=== PATIENT | female | born 1935 | race African-American/Black ===

== ENCOUNTER 2017-09-16 21:14 | Inpatient (IN) | payer MEDICARE ==
--- NOTE | 2017-09-16 21:51 | ED Physician Chart ---
ED Chief Complaint/HPI - Patient Information Date Seen:: 09/16/17 Time Seen:: 21:30 Chief Complaint:: generalized weakness History of Present Illness:: Patient's been lethargic, had generalized weakness, anorexic, refusing medications, and constipated for 3 days. Allergies:: Allergies Allergy/AdvReac Type Severity Reaction Status Date / Time Penicillins [PCN] Allergy Verified 09/16/17 21:17 Vitals:: Vital Signs - 8 hr 09/16/17 21:18 Temp 97.8 F HR 95 RR 20 BP 144/92 O2 Sat % 99 Historian:: EMS Review:: Transfer documents Reviewed ED Review of Systems - Review of Systems General/Constitutional: Weakness Skin: No skin lesions Head: No headache Eyes: No loss of vision ENT: No earache Neck: No neck pain Cardio Vascular: No chest pain Pulmonary: No SOB GI: Constipation, Other (Alexia) G/U: No dysuria Musculoskeletal: No bone or joint pain Endocrine: No polyuria, No polydipsia Psychiatric: Depression, Other (dementia) Hematopoietic: No bruising Allergic/Immuno: No urticaria Neurological: No syncope ED Past Medical History - Past Medical History Past Medical History: HTN, DM (status post urinary tract infection; major depression; anemia; hypercholesterolemia; vitamin D deficiency), CHF, Dyslipidemia, Arthritis, Dementia, Other (status post urinary tract infection; congestive heart failure) Family History: Other (unavailable) Social History: Care Facility Surgical History: other (unavailable) Psychiatricy History: Depression, Dementia Medication: Reviewed Family Medical History - Family Member Mother History Unknown: Yes ED Physical Exam - Physical Examination Other Gen/Cons comments:: Nonverbal Head: Atraumatic Eyes: Lids, conjuctiva normal Skin: Nl inspection ENMT: External ears, nose nl Neck: No nuchal rigidity Respiratory: Nl effort/Exclusion, Clear to Auscultation, No Wheeze/Rhonchi/Rales Cardio Vascular: RRR, No murmur, gallop, rubs, NL S1 S2 GI: No tenderness/rebounding/guarding, No organomegaly, No hernia, Normal BS's : No CVA tenderness Extremities: No tenderness or effusion Neuro/Psych: No focal deficits Misc: Normal back ED Labs/Radiology/EKG Results - Lab Results Results: Laboratory Results - last 24 hr 05/09/16/17 09/16/17 22:02 22:02 22:02 WBC 17.6 H RBC 4.13 Hgb 12.2 Hct 36.6 L MCV 88.6 MCH 29.5 MCHC Differential 33.3 RDW 13.6 Plt Count 334 MPV 7.8 Band Neutrophils % 1 Neutrophils (Manual) 93 H Lymphocytes 6 L Platelet Estimate ADEQUATE Sodium 140 Potassium 6.4 H* Chloride 108 H Carbon Dioxide 14.3 L Anion Gap 24.1 H BUN 223 H* Creatinine 4.8 H* Est GFR ( Amer) TNP Est GFR (Non-Af Amer) TNP BUN/Creatinine Ratio 46.5 Glucose 116 H Whole Bld Lactic Acid Calcium 11.5 H Troponin I 0.11 H* 09/16/17 22:02 WBC RBC Hgb Hct MCV MCH MCHC Differential RDW Plt Count MPV Band Neutrophils % Neutrophils (Manual) Lymphocytes Platelet Estimate Sodium Potassium Chloride Carbon Dioxide Anion Gap BUN Creatinine Est GFR ( Amer) Est GFR (Non-Af Amer) BUN/Creatinine Ratio Glucose Whole Bld Lactic Acid 1.31 Calcium Troponin I - EKG Interpretations Rate & Rhythm: normal sinus rhythm with a rate of 77 [place]: normal axis Comments:: T inversion in leads 1 aVL, V4 to V6 ED Septic Shock - . Is Septic Shock (SBP<90, OR Lactate>4 mmol\L) present?: No - <6hrs of presentation: Vital Signs: Vital Signs - 8 hr 09/16/17 21:18 Temp 97.8 F HR 95 RR 20 BP 144/92 O2 Sat % 99 ED Reassessment (Disposition) - Diagnosis Diagnosis:: Leukocytosis; dehydration; hyperkalemia; abated troponin - Patient Disposition Admitted to:: ICU Spoke to:: William Cabello Admitting Medical Physician:: William Cabello Condition at Disposition:: Critical, Unchanged
[2017-09-16 22:09] LABS: MANUAL DIFF REQUIRED? YES; RED CELL DISTRIBUTION WIDTH 13.6 % (11.5-20.0)
[2017-09-16 22:22] LABS: HEMATOCRIT 36.6 % (41.0-60); HEMOGLOBIN 12.2 gm/dL (12-16); MEAN CELL VOLUME 88.6 fl (81-100); MEAN CORPUSCULAR HEMOGLOBIN 29.5 pg (27.0-31.0); MEAN CORPUSCULAR HGB CONC 33.3 pg (28.0-36.0); MEAN PLATELET VOLUME 7.8 fl; PLATELET COUNT 334 Th/cmm (150-400); RED BLOOD COUNT 4.13 Mil/cmm (3.80-5.20)
[2017-09-16 22:30] LABS: ANION GAP 24.1 (7.0-16.0); CALCIUM SERUM 11.5 mg/dL (8.6-10.3); CARBON DIOXIDE 14.3 mEq/L (21.0-31.0); CHLORIDE 108 mEq/L (98-107); GLUCOSE 116 mg/dL (70-105); SODIUM SERUM 140 mEq/L (136-145); WHITE BLOOD COUNT 17.6 Th/cmm (4.8-10.8)
[2017-09-16 22:49] LABS: BUN - UREA NITROGEN 223 mg/dL (7-25); CREATININE - SERUM 4.8 mg/dL (0.6-1.2); POTASSIUM SERUM 6.4 mEq/L (3.5-5.1)
[2017-09-16 23:21] LABS: BAND NEUTROPHILE 1 % (0-10); LYMPHOCYTE 6 % (20-50); NEUTROPHILS 93 % (40-80); PLATELET ESTIMATE ADEQUATE (NORMAL); TOTAL CELLS COUNTED 100
[2017-09-17] MEDS ORDERED: Fleet Enema 135 mL RC ONE (01:06)
[2017-09-17] MEDS: D5-0.45NS 1,000 ML IV SCH ×4 (01:21→23:41)
[2017-09-17 01:28] LABS: pH 7.39 (7.35-7.45)
[2017-09-17 01:29] LABS: ALLEN TEST Positive
[2017-09-17 01:45] VITALS: BP 153/76
[2017-09-17 02:57] LABS: URINE MICROSCOPIC INDICATED? YES; URINE SOURCE FOLEY PORT
[2017-09-17 03:00] LABS: URINE BILIRUBIN NEGATIVE (NEGATIVE); URINE BLOOD SMALL (NEGATIVE); URINE GLUCOSE (UA) NEGATIVE (NEGATIVE); URINE KETONE NEGATIVE (NEGATIVE); URINE LEUKOCYTE ESTERASE LARGE (NEGATIVE); URINE NITRATE NEGATIVE (NEGATIVE); URINE PH 8.5 (4.6 - 8.0); URINE PROTEIN 30 mg/dL (NEGATIVE); URINE UROBILINOGEN 0.2 E.U./dL (0.2 - 1.0)
[2017-09-17 03:01] LABS: URINE CLARITY HAZY (CLEAR); URINE COLOR YELLOW
[2017-09-17 03:07] LABS: URINE BACTERIA MANY /hpf (NONE SEEN); URINE EPITHELIAL CELLS MODERATE /lpf (FEW); URINE WBC 25-50 /hpf (0-5)
[2017-09-17] MEDS ORDERED: Levofloxacin 500mg/100mL 500 MG/100 ML BAG IV SCH (07:15)
[2017-09-17] MEDS ORDERED: Magnesium Hydroxide (MOM) 30 mL UDC PO PRN (07:15)
[2017-09-17 07:16] LABS: BASOPHILE ABSOLUTE 0.1 Th/cumm (0-0.2); EOSINOPHILE ABSOLUTE 0.1 Th/cmm (0.1-0.4); HEMOGLOBIN 12.7 gm/dL (12-16); LYMPHOCYTE ABSOLUTE 0.5 Th/cmm (1.5-3.0); MANUAL DIFF REQUIRED? YES; MEAN CELL VOLUME 88.9 fl (81-100); MEAN CORPUSCULAR HEMOGLOBIN 29.6 pg (27.0-31.0); MEAN CORPUSCULAR HGB CONC 33.3 pg (28.0-36.0); MONOCYTE ABSOLUTE 0.4 Th/cmm (0.3-1.0); NEUTROPHILE ABSOLUTE 16.5 Th/cmm (1.8-8.0); RED BLOOD COUNT 4.27 Mil/cmm (3.80-5.20); RED CELL DISTRIBUTION WIDTH 13.9 % (11.5-20.0)
[2017-09-17 07:17] LABS: % BASOPHILS 0.3 % (0.0-2.0); % EOSINOPHILS 0.3 % (0.0-5.0); % LYMPHOCYTES 2.7 % (20.0-50.0); % MONOCYTES 2.2 % (2.0-10.0); % NEUTROPHILS 94.5 % (40.0-80.0); WHITE BLOOD COUNT 17.6 Th/cmm (4.8-10.8)
[2017-09-17 07:18] LABS: PLATELET COUNT 118 Th/cmm (150-400)
[2017-09-17 07:52] LABS: ALB/GLOB RATIO 1.3 (1.0-1.8); ALKALINE PHOSPHATASE 53 U/L (34-104); ANION GAP 25.7 (7.0-16.0); BILIRUBIN,TOTAL 0.7 mg/dL (0.3-1.0); CALCIUM SERUM 11.1 mg/dL (8.6-10.3); CARBON DIOXIDE 10.2 mEq/L (21.0-31.0); CHLORIDE 110 mEq/L (98-107); GLUCOSE 197 mg/dL (70-105); MAGNESIUM 2.4 mg/dL (1.9-2.7); PHOSPHOROUS 6.7 mg/dL (2.5-5.0); POTASSIUM SERUM 5.9 mEq/L (3.5-5.1); SGOT 30 U/L (13-39); SGPT/ALT 23 U/L (7-52); SODIUM SERUM 140 mEq/L (136-145)
[2017-09-17 08:00] LABS: BUN - UREA NITROGEN 210 mg/dL (7-25); CREATININE - SERUM 4.6 mg/dL (0.6-1.2)
--- NOTE | 2017-09-17 08:32 | Diagnostic Imaging Report ---
KUB single view HISTORY: NG tube placement COMPARISON: None FINDINGS: An NG tube is seen curled along the fundal portion of the stomach. Multiple calcified mediastinal lymph nodes are noted. Gas distended loops of bowel are noted with moderate amount of stool noted. Surgical clip is seen in the right upper quadrant. IMPRESSION: NG tube curled along the fundal portion of the stomach. Gaseous filled loops of bowel along the upper abdomen with moderate amount of stool noted.
--- NOTE | 2017-09-17 08:33 | Diagnostic Imaging Report ---
KUB single view HISTORY: NG tube readjustment COMPARISON: KUB earlier the same day FINDINGS: An NG tube is now uncurled with tip along the fundal portion of the stomach. Gas-filled loops of bowel the upper abdomen is noted. Distal fecal impaction is noted. Postsurgical changes of the right upper quadrant are noted. IMPRESSION: An NG tube with tip along the fundal portion of the stomach. Generalized gas distended loops of bowel. Distal fecal impaction.
[2017-09-17] MEDS: Aspirin 81mg Chewable Tab PO SCH (08:45)
[2017-09-17] MEDS: POLYETHYLENE GLYCOL 3350 17 GM PACK PO SCH (08:47)
[2017-09-17] MEDS ORDERED: Aspirin 81mg Chewable Tab PO SCH (09:00)
[2017-09-17] MEDS: INSULIN ASPART SLIDING SCALE 100 UNITS/ML UNIT SUBQ SCH ×4 (09:32→21:00)
[2017-09-17] MEDS: metroNIDAZOLE 500mg/NS 100mL 500 MG/100 ML BAG IV SCH ×2 (09:59→17:31)
--- NOTE | 2017-09-17 10:25 | Diagnostic Imaging Report ---
CHEST X-RAY: AP view INDICATION: Pneumonia COMPARISON: KUB on 10/06/2012 FINDINGS: NG tube is within the stomach. A exam is limited as patient's arm appears to be overlying the left lateral hemithorax. Multiple calcified mediastinal lymph nodes are noted. Heart size is normal. IMPRESSION: Limited exam as patient's arm appears to be overlying the left lateral hemithorax. A repeat exam after repositioning is recommended. Otherwise no focal consolidation identified.
[2017-09-17] MEDS: Rivastigmine 9.5 mg/24 hr Tdm TD SCH (11:10)
--- NOTE | 2017-09-17 11:38 | History & Physical ---
ADMIT DATE: 09/17/2017 CHIEF COMPLAINT: Lethargy, severe weakness, not eating for a few days. HISTORY OF PRESENT ILLNESS: The patient is an 82-year-old -[place] female admitted from the Emergency Room to the Intensive Care Unit of [facility] due to multiple complicated medical conditions. From nursing staff in the long-term, the patient was very confused and very lethargic and had not been eating for a few days. In the Emergency Room, the patient was very confused, lethargic, severely constipated with acute renal failure, BUN 223, creatinine 4.8, potassium 6.4, troponin 0.11 and the patient's white count is elevated to 17,600. Her UA revealed findings consistent with urinary tract infection with large leukocyte esterase, 50 wbc, many bacteria. Walters culture ordered while the patient in the Emergency Room and empiric antibiotic started. I had ordered Fleet enema stat in the Emergency Room due to severe constipation. I also ordered 60 grams of Kayexalate in the Emergency Room due to severe hyperkalemia. The patient is kept n.p.o. due to altered level of consciousness. NG tube was inserted for medication. Large IV fluid started. Because of the minimally elevated troponin, despite it is likely due to acute renal failure, I still started the patient on Lipitor, aspirin, and metoprolol. DELMI inhibitor or ARB was not reconciled due to acute renal failure. PAST MEDICAL HISTORY: Including urinary tract infection, hypertension, congestive heart failure, diabetes, degenerative joint disease, depression, anemia, hyperlipidemia, difficulty walking. PAST SURGICAL HISTORY: This cannot be reliably obtained due to the patient's mental status. PHYSICAL EXAMINATION: VITAL SIGNS: The patient's vital signs are basically stable with blood pressure on the higher side. HEENT: Normocephalic, atraumatic. Pupils equal, round, react to light and accommodation. CHEST: Symmetrical. LUNGS: Few rhonchi appreciated. HEART: Normal sinus rhythm. S1, S2. ABDOMEN: Benign, soft, nontender. EXTREMITIES: No clubbing, cyanosis, edema. Bilaterally 2+ equally. NEUROLOGIC: Basically unremarkable. LABORATORY AND DIAGNOSTIC DATA: Reviewed as seen from the computer. Significant for acute renal failure with BUN 223, creatinine 4.8, potassium is 6.4. Troponin 0.11. WBC 17,600. UA revealed large leukocyte esterase, 50 wbc, many bacteria. ASSESSMENT AND PLAN: 1. Acute renal failure: This is likely due to severe dehydration and I have started large IV fluids with D5 half normal saline at 125 mL per hour. We will repeat BMP in the morning. 2. Altered level of consciousness: Due to metabolic encephalopathy and dementia. We will observe closely. 3. Elevated troponin: This is minimal elevation and I have ordered troponin q.6 hours x 3 and start the patient on aspirin, Lipitor, and metoprolol. I did not put the patient on DELMI inhibitors or ARB despite elevated troponin due to the fact the patient has acute renal failure. 4. Hyperkalemia: Kayexalate 60 grams was offered in the Emergency Room after I ordered to insert NG tube. 5. Urinary tract infection: Urine culture and blood culture ordered, empiric antibiotics started which will be adjusted accordingly. 6. Leukocytosis: Multifactorial. We will observe closely and repeat CBC and adjust antibiotics accordingly. 7. Constipation: I have ordered Fleet enema in the Emergency Room and resume medication from long-term for constipation. 8. Hypertension: I discontinued the DELMI inhibitor and gave the patient Apresoline 10 mg IV q.6 p.r.n. for hypertension and I resumed clonidine and beta terra. We will monitor closely. 9. History of diabetes: Sliding scale insulin low dose. 10. Congestive heart failure: Check BNP and echocardiogram. 11. Anemia of chronic disease. 12. History of hyperlipidemia. 13. DVT prophylaxis. . 14. ICU status. JOB# [id number]
[2017-09-17] MEDS: Hydrocodone/APAP 5mg/325mg Tab PO PRN ×2 (13:31→23:43)
[2017-09-17] MEDS ORDERED: VTE Chemical Prophylaxis Screen/Admission MC PRN (14:18)
[2017-09-17 16:09] LABS: ANION GAP 26.5 (7.0-16.0); CALCIUM SERUM 10.7 mg/dL (8.6-10.3); CARBON DIOXIDE 11.5 mEq/L (21.0-31.0); CHLORIDE 113 mEq/L (98-107); GLUCOSE 167 mg/dL (70-105); SODIUM SERUM 147 mEq/L (136-145)
--- NOTE | 2017-09-17 16:19 | Cardiology ---
09/17/[address] Irineo Thomas. M-MODE ECHOCARDIOGRAM: Mitral valve, anterior leaflet of mitral valve shows normal excursion, EF velocity. Posterior leaflet of the mitral valve shows normal excursion. Left ventricle posterior wall shows increased thickness, normal excursion. Interventricular septum shows increased thickness, normal excursion. There is moderate hypertrophy of the left ventricle, ejection fraction 55%. Left atrium normal. Aortic root shows normal dimension, normal excursion of aortic leaflets. CONCLUSION: [id number] left ventricular hypertrophy. Ejection fraction 50%. 2D ECHO: Long axis view showed normal sized left ventricle with hypertrophy of the left ventricle. Left atrium normal. Aortic root shows normal dimension, normal excursion of aortic leaflets. Short axis view of mitral valve normal. Short axis view of aortic valve normal. Apical four chamber view showed normal sized left ventricle with hypertrophy of the left ventricle. Left atrium normal. Right ventricular cavity, right atrium normal, no pericardial effusion. CONCLUSION: Hypertrophy of the left ventricle, ejection fraction 55%. Doppler study shows mild tricuspid regurgitation, mild pulmonary regurgitation. JOB# [id number]
[2017-09-17 16:28] LABS: BUN - UREA NITROGEN 207 mg/dL (7-25); CREATININE - SERUM 4.4 mg/dL (0.6-1.2)
[2017-09-17 20:24] LABS: A1C % 5.9 % (4.0-6.0)
[2017-09-17] MEDS: Insulin Detemir 100 units/mL 10mL Vial SUBQ SCH (20:35)
[2017-09-17] MEDS ORDERED: Atorvastatin Calcium 10 MG TAB PO SCH (21:00)
[2017-09-17 21:08] LABS: EOSINOPHIL SMEAR SOURCE URINE; EOSINOPHILS SMEAR COUNT NONE SEEN (NONE SEEN)
[2017-09-18] MEDS: metroNIDAZOLE 500mg/NS 100mL 500 MG/100 ML BAG IV SCH ×3 (01:00→17:18)
--- NOTE | 2017-09-18 01:34 | Progress Notes ---
DATE: 09/17/2017 SUBJECTIVE: The patient is confused, agitated in the intensive care unit and is basically afebrile and hypertensive. OBJECTIVE: VITAL SIGNS: Basically stable except blood pressure high from time to time. HEENT: Normocephalic, atraumatic. Pupils equal, round, react to light and accommodation. CHEST: Symmetrical. LUNGS: Few rhonchi appreciated. CARDIAC: Normal sinus rhythm. S1, S2. ABDOMEN: Benign, soft, nontender. EXTREMITIES: No clubbing, cyanosis or edema . NEUROLOGICAL: Unremarkable. LABORATORY DATA: Reviewed as seen from the computer. BUN and creatinine down to 210/4.6 from 223/4.8 last night. Potassium is down to 5.8 from 6.4 last night. Repeated troponin 0.11, which is unchanged. TSH 0.59, which is normal. WBC 17,600, unchanged. ASSESSMENT AND PLAN: 1. Altered level of consciousness due to metabolic encephalopathy and dementia and we will observe closely. I cancelled brain CT scan as from physical examination the patient is less likely had a stroke. 2. Acute renal failure: Continue large IV fluids. We will repeat BMP. 3. Hyperkalemia: The potassium is down to 5.9 from 6.4 last night. I have ordered additional 60 grams Kayexalate via NG tube x 1 right now and repeat BMP 4 hours after administration of Kayexalate. 4. Leukocytosis, unchanged, multifactorial and zaidi culture ordered. Empiric antibiotics started, which will be adjusted accordingly. 5. Gastric protection with proton pump inhibitor. 6. Urinary tract infection: Pending urine culture results. 7. Elevated troponin, unchanged: Again, this is unlikely because the patient had a myocardial infarction. In light of the fact, the patient has marked elevated BUN and creatinine. Anyway, we will continue aspirin, Lipitor, and metoprolol and avoid DELMI inhibitor or an ARB due to acute renal failure. 8. DVT prophylaxis. 9. Continue ICU care. JOB# [id number]
[2017-09-18 05:49] LABS: HEMOGLOBIN 10.9 gm/dL (12-16); LYMPHOCYTE ABSOLUTE 0.7 Th/cmm (1.5-3.0); MANUAL DIFF REQUIRED? YES; MEAN CELL VOLUME 88.2 fl (81-100); MEAN CORPUSCULAR HEMOGLOBIN 29.5 pg (27.0-31.0); MEAN CORPUSCULAR HGB CONC 33.4 pg (28.0-36.0); MEAN PLATELET VOLUME 8.1 fl; MONOCYTE ABSOLUTE 0.6 Th/cmm (0.3-1.0); NEUTROPHILE ABSOLUTE 13.8 Th/cmm (1.8-8.0); RED BLOOD COUNT 3.69 Mil/cmm (3.80-5.20); RED CELL DISTRIBUTION WIDTH 13.4 % (11.5-20.0)
[2017-09-18 06:06] LABS: ANION GAP 19.3 (7.0-16.0); CALCIUM SERUM 9.6 mg/dL (8.6-10.3); CARBON DIOXIDE 17.2 mEq/L (21.0-31.0); CHLORIDE 112 mEq/L (98-107); CREATININE - SERUM 3.7 mg/dL (0.6-1.2); GLUCOSE 130 mg/dL (70-105); MAGNESIUM 1.8 mg/dL (1.9-2.7); SODIUM SERUM 146 mEq/L (136-145); URIC ACID 8.8 mg/dL (2.3-6.6)
[2017-09-18 06:10] LABS: HEMATOCRIT 32.5 % (41.0-60); PLATELET COUNT 284 Th/cmm (150-400); WHITE BLOOD COUNT 15.1 Th/cmm (4.8-10.8)
[2017-09-18 06:23] LABS: BAND NEUTROPHILE 4 % (0-10); BASOPHIL 0 % (0-3); EOSINOPHIL 1 % (0-5); LYMPHOCYTE 5 % (20-50); MONOCYTE 4 % (2-10); NEUTROPHILS 86 % (40-80); PLATELET ESTIMATE ADEQUATE (NORMAL); PLATELET MORPHOLOGY NORMAL (NORMAL); TOTAL CELLS COUNTED 100
[2017-09-18 06:24] LABS: BUN - UREA NITROGEN 188 mg/dL (7-25); POTASSIUM SERUM 2.5 mEq/L (3.5-5.1)
[2017-09-18] MEDS ORDERED: SODIUM CHLORIDE 0.9% IV ONE ×2 (06:39→20:24)
[2017-09-18] MEDS ORDERED: LIDOCAINE IV ONE ×2 (06:39→20:24)
[2017-09-18] MEDS ORDERED: POTASSIUM CHLORIDE IV ONE ×2 (06:39→20:24)
[2017-09-18] MEDS: D5-0.45NS 1,000 ML IV SCH ×2 (06:48→17:25)
[2017-09-18] MEDS: INSULIN ASPART SLIDING SCALE 100 UNITS/ML UNIT SUBQ SCH ×4 (07:12→20:55)
[2017-09-18] MEDS: Levofloxacin 250mg/50mL 250 MG/50 ML BAG IV SCH (08:22)
[2017-09-18] MEDS: Aspirin 81mg Chewable Tab PO SCH (08:22)
[2017-09-18] MEDS: KCL 20mEq/100mL Premix Bag IV SCH (08:52)
[2017-09-18] MEDS: POLYETHYLENE GLYCOL 3350 17 GM PACK PO SCH (09:51)
[2017-09-18] MEDS: Rivastigmine 9.5 mg/24 hr Tdm TD SCH (10:00)
[2017-09-18] MEDS ORDERED: Diltiazem 5 mg/mL 5mL Vial IVP ONE (12:07)
--- NOTE | 2017-09-18 12:29 | Consultation ---
DATE OF CONSULTATION: 09/17/2017 REASON FOR CONSULTATION: Electrolyte imbalance and fluid management. HISTORY OF PRESENT ILLNESS: This is an 82-year-old -[place] female with past medical history of major depression and was brought in because of severe weakness. Three days prior to admission, the patient was found to be more lethargic. She started to refuse to eat as well as drink. This led to generalized weakness. A few hours prior to admission, she was more lethargic and confused as well as uncooperative. She has not eaten for 3 days. Thus, she was brought to the Emergency Room. Her white count was 17.6. Lactic acid was 1.31 with a troponin of 0.11. Chest x-ray revealed no acute disease. KUB revealed gas distended bowel loops with distal fecal impaction. Her potassium level was 6.4. She was given Kayexalate and potassium came down to 5.9. Initially her BUN/creatinine were 223/4.8. She was started on IV hydration and her BUN/creatinine improved to 210/4.6. She denied any nausea and vomiting, as well as diarrhea and abdominal pain. PAST MEDICAL HISTORY: 1. Essential hypertension. 2. History of congestive heart failure. 3. Type 2 diabetes mellitus. 4. Degenerative joint disease. 5. Dementia without behavioral disturbance. 6. Major depression. 7. Dyslipidemia. 8. History of UTI. PAST SURGICAL HISTORY: None. CURRENT MEDICATIONS: She is currently on aspirin, atorvastatin, bisacodyl, clonidine, docusate sodium, heparin, hydralazine, hydrocodone/APAP, aspart, detemir, isosorbide mononitrate, levofloxacin, lorazepam, magnesium hydroxide, metronidazole, pantoprazole, rivastigmine, and Kayexalate. ALLERGIES: Allergic to PENICILLIN. SOCIAL AND FAMILY HISTORY: I was not able to obtain directly from the patient because she remains lethargic. REVIEW OF SYSTEMS: Again, I was not able to decipher directly from the patient because of the above symptoms. PHYSICAL EXAMINATION: GENERAL: The patient remains stuporous, responsive to pain, occasionally gets agitated and screams. The patient is cachectic. VITAL SIGNS: The patient is afebrile, pulse 79, and BP 144/64. SKIN: Very poor turgor, warm, no rash, no jaundice appreciated. HEENT: Head normocephalic, atraumatic. Eyes: Extraocular muscles intact. Pupils are equal, round, reactive to light and accommodate. Anicteric sclerae. Pale conjunctivae. Nose, midline nasal septum. Mouth, dry, poor oral mucosa. NECK: Supple, no adenopathy, no thyromegaly, no bruits. Trachea palpated in the midline. CHEST AND CARDIOVASCULAR: S1, S2. No rub, murmur, nor gallop appreciated. Point of maximal impulse fifth intercostal space, left midclavicular line. No abdominal or femoral bruits appreciated. LUNGS: Equal expansion. No use of accessory muscles. No supraclavicular retractions. Decreased breath sounds, but clear to auscultation without any wheeze. BREASTS: Symmetrical, without any discharge. ABDOMEN: Mildly globular, soft. Diminished bowel sounds. No tenderness, no bruit on palpation. RECTAL: The patient refused because she has been examined several times before. GENITOURINARY: Normal appearing female genitalia. MUSCULOSKELETAL: No effusions present in her joints, but unable to assess her range of motion. EXTREMITIES: No evidence of any edema, cyanosis, nor clubbing with palpable femoral, but unable to fully appreciate popliteal and dorsalis pedis pulses. NEUROLOGIC: As mentioned, the patient is awake, but remains confused, rather has periods of agitation so I was not able to pursue further my neuro exam. LABORATORY DATA AND STUDIES: Did reveal a white count of 17.6, hemoglobin 12.7, hematocrit 38, platelets 118, and polys 94.5%. PH 7.39, pCO2 22, pO2 105, bicarb 17.4. Sodium 140, potassium 5.9, chloride 110, bicarb 103, carbon dioxide is 10.2, BUN is 210, creatinine 4.6, and glucose 197. Lactic acid 1.31, calcium 11.1, phosphorus 6.7, magnesium 2.4. Troponin 0.11. Albumin is 4. IMPRESSION: 1. Acute renal failure. The patient has not been eating for several days. This was supported by poor skin turgor and dry oral mucosa. She initially developed prerenal azotemia. As days went on, she eventually progressed acute tubular injury and as mentioned, this is likely secondary to dehydration brought about by her failure to thrive, intake of Bumex, spironolactone as well as lisinopril. 2. Hyperkalemia secondary to her acute kidney failure, also being on spironolactone and lisinopril are contributing factors to this. 3. Hypercalcemia secondary to dehydration. 4. Hyperphosphatemia secondary to her kidney failure. 5. Leukocytosis, which is secondary to ongoing complicated urinary tract infection. 6. Complicated urinary tract infection. 7. Altered level of consciousness secondary to metabolic (uremic) encephalopathy. 8. Failure to thrive. 9. Fecal impaction. 10. Essential hypertension with chronic kidney disease. 11. History of congestive heart failure. 12. Type 2 diabetes mellitus with chronic kidney disease. 13. Degenerative joint disease. 14. Dementia without behavioral disturbance. 15. Major depression. 16. Dyslipidemia. PLAN: 1. Continue on with IV fluids. 2. Urine sodium, eosinophils, and creatinine. 3. Urine microalbumin to creatinine ratio. 4. Renal ultrasound. 5. Follow up electrolytes and CBC. 6. Follow up zaidi culture. 7. Kayexalate as needed. The patient now has very good urine output. I think that the patient's kidney function may recover if she reached the point of being adequately hydrated. She does not look like she needs any dialysis at this point based upon response of urine output. JOB# [id number]
[2017-09-18] MEDS ORDERED: DILTIAZEM IVP PRN ×2 (12:54→13:37)
--- NOTE | 2017-09-18 13:10 | General Progress Note ---
Subjective - Review of Systems Service Date: 09/18/17 Subjective: drowsy, periods of screaming Objective - Results Result Diagrams: 09/18/17 04:40 09/18/17 04:40 Recent Labs: Laboratory Last Values WBC 15.1 Th/cmm (4.8-10.8) H 09/18/17 04:40 RBC 3.69 Mil/cmm (3.80-5.20) L 09/18/17 04:40 Hgb 10.9 gm/dL (12-16) L 09/18/17 04:40 Hct 32.5 % (41.0-60) L D 09/18/17 04:40 MCV 88.2 fl (81-100) 09/18/17 04:40 MCH 29.5 pg (27.0-31.0) 09/18/17 04:40 MCHC Differential 33.4 pg (28.0-36.0) 09/18/17 04:40 RDW 13.4 % (11.5-20.0) 09/18/17 04:40 Plt Count 284 Th/cmm (150-400) D 09/18/17 04:40 MPV 8.1 fl 09/18/17 04:40 Neutrophils % 94.5 % (40.0-80.0) H 09/17/17 07:05 Band Neutrophils % 4 % (0-10) 09/18/17 04:40 Lymphocytes % 2.7 % (20.0-50.0) L 09/17/17 07:05 Monocytes % 2.2 % (2.0-10.0) 09/17/17 07:05 Eosinophils % 0.3 % (0.0-5.0) 09/17/17 07:05 Basophils % 0.3 % (0.0-2.0) 09/17/17 07:05 Neutrophils (Manual) 86 % (40-80) H 09/18/17 04:40 Lymphocytes 5 % (20-50) L 09/18/17 04:40 Monocytes 4 % (2-10) 09/18/17 04:40 Eosinophils 1 % (0-5) 09/18/17 04:40 Basophils 0 % (0-3) 09/18/17 04:40 Platelet Estimate ADEQUATE (NORMAL) 09/18/17 04:40 Platelet Morphology NORMAL (NORMAL) 09/18/17 04:40 RBC Morph Micro Appear NORMAL (NORMAL) 09/18/17 04:40 Eos Smear Source URINE 09/17/17 17:40 Eos Smear Total Cells NONE SEEN (NONE SEEN) 09/17/17 17:40 Specimen Source ARTERIAL 09/17/17 01:06 Sample Site Right Radial 09/17/17 01:06 pH 7.39 (7.35-7.45) 09/17/17 01:06 pCO2 22.0 mmHg (35.0-45.0) L* 09/17/17 01:06 pO2 105.0 mmHg (80.0-100.0) H 09/17/17 01:06 HCO3 17.4 mEq/L (20.0-26.0) L 09/17/17 01:06 Base Excess -9.7 mEq/L (-3.0-3.0) L 09/17/17 01:06 O2 Saturation 98.0 % (92.0-100.0) 09/17/17 01:06 Dheeraj Test Positive 09/17/17 01:06 Vent Rate N/A 09/17/17 01:06 Inspired O2 21 09/17/17 01:06 Tidal Volume N/A 09/17/17 01:06 PEEP N/A 09/17/17 01:06 Pressure (ins/psv/peep) N/A 09/17/17 01:06 Critical Value MM,HYBRID TECHNOLOGIST 09/17/17 01:06 Sodium 146 mEq/L (136-145) H 09/18/17 04:40 Potassium 2.5 mEq/L (3.5-5.1) L* D 09/18/17 04:40 Chloride 112 mEq/L (98-107) H 09/18/17 04:40 Carbon Dioxide 17.2 mEq/L (21.0-31.0) L 09/18/17 04:40 Anion Gap 19.3 (7.0-16.0) H 09/18/17 04:40 BUN 188 mg/dL (7-25) H* 09/18/17 04:40 Creatinine 3.7 mg/dL (0.6-1.2) H 09/18/17 04:40 Est GFR ( Amer) TNP 09/18/17 04:40 Est GFR (Non-Af Amer) TNP 09/18/17 04:40 BUN/Creatinine Ratio 50.8 09/18/17 04:40 Glucose 130 mg/dL (70-105) H 09/18/17 04:40 POC Glucose 118 MG/DL (70 - 105) H 09/18/17 12:30 Hemoglobin A1c % 5.9 % (4.0-6.0) 09/17/17 07:05 Whole Bld Lactic Acid 1.31 mmol/L (0.60-1.99) 09/16/17 22:02 Uric Acid 8.8 mg/dL (2.3-6.6) H 09/18/17 04:40 Calcium 9.6 mg/dL (8.6-10.3) 09/18/17 04:40 Phosphorus 6.7 mg/dL (2.5-5.0) H 09/17/17 07:05 Magnesium 1.8 mg/dL (1.9-2.7) L 09/18/17 04:40 Total Bilirubin 0.7 mg/dL (0.3-1.0) 09/17/17 07:05 AST 30 U/L (13-39) 09/17/17 07:05 ALT 23 U/L (7-52) 09/17/17 07:05 Alkaline Phosphatase 53 U/L (34-104) 09/17/17 07:05 Troponin I 0.11 ng/mL (0.01-0.05) H* D 09/17/17 22:55 B-Natriuretic Peptide 174.0 pg/mL (5.0-100.0) H 09/17/17 07:05 Total Protein 7.0 gm/dL (6.0-8.3) 09/17/17 07:05 Albumin 4.0 gm/dL (3.7-5.3) 09/17/17 07:05 Globulin 3.0 gm/dL 09/17/17 07:05 Albumin/Globulin Ratio 1.3 (1.0-1.8) 09/17/17 07:05 TSH 0.59 uIU/ml (0.34-5.60) 09/17/17 07:05 Urine Source [place] 09/17/17 02:30 Urine Color YELLOW 09/17/17 02:30 Urine Clarity HAZY (CLEAR) 09/17/17 02:30 Urine pH 8.5 (4.6 - 8.0) 09/17/17 02:30 Ur Specific [place] 1.010 (1.005-1.030) 09/17/17 02:30 Urine Protein 30 mg/dL (NEGATIVE) H 09/17/17 02:30 Urine Glucose (UA) NEGATIVE mg/dL (NEGATIVE) 09/17/17 02:30 Urine Ketones NEGATIVE mg/dL (NEGATIVE) 09/17/17 02:30 Urine Blood SMALL (NEGATIVE) H 09/17/17 02:30 Urine Nitrate NEGATIVE (NEGATIVE) 09/17/17 02:30 Urine Bilirubin NEGATIVE (NEGATIVE) 09/17/17 02:30 Urine Urobilinogen 0.2 E.U./dL (0.2 - 1.0) 09/17/17 02:30 Ur Leukocyte Esterase LARGE (NEGATIVE) H 09/17/17 02:30 Urine RBC 2-5 /hpf (0-5) 09/17/17 02:30 Urine WBC 25-50 /hpf (0-5) H 09/17/17 02:30 Ur Epithelial Cells MODERATE /lpf (FEW) 09/17/17 02:30 Urine Bacteria MANY /hpf (NONE SEEN) H 09/17/17 02:30 Ur Random Sodium 33 mmol/L 09/17/17 17:40 Urine Creatinine 65.0 mg/dl (28.0-217.0) 09/17/17 17:40 - Physical Exam Vitals and I&O: Vital Signs Temp 96.9 F 09/18/17 08:00 Pulse 131 09/18/17 10:00 Resp 16 09/18/17 10:00 BP 93/55 09/18/17 10:00 Pulse Ox 100 09/18/17 09:00 Intake & Output 09/17/17 09/18/17 09/18/17 18:59 06:59 18:59 Intake Total 918.098 4143.583 150 Output Total 950 Balance 557.961 2953.583 150 Weight (lbs) 57.153 kg Intake: Intake, IV Amount 809.838 3541.583 150 D5-0.45NS 1,000 ml @ 100 511.667 mls/hr IV .Q10H [facility] Rx#: [id number] D5-0.45NS 1,000 ml @ 125 1764.583 mls/hr IV .Q8H [facility] Rx#: [id number] Levofloxacin 250mg/50mL 50 250 mg In 50 ml @ 50 mls/ hr IV Q24H [facility] Rx#: [id number] Levofloxacin 500mg/100mL 100 500 mg In 100 ml @ 100 mls/hr IV Q24HR [facility] Rx#: [id number] metroNIDAZOLE 500mg/NS 200 100 100 100mL 500 mg In 100 ml @ 100 mls/hr IV Q8H [facility] Rx# :[id number] Oral 40 Other 250 Output: Urine 950 Other: # Bowel Movements 2 Stool Characteristics Soft Soft Soft Formed Weight Source Bedscale Active Medications: Current Medications Acetaminophen (Tylenol) 650 mg PO Q6HR PRN PRN Reason: Pain or Fever >101 Stop: 11/16/17 07:14 Acetaminophen/Hydrocodone Bitart ([place] 5mg/325mg) 1 tab PO Q6H PRN PRN Reason: Pain (Severe) Stop: 11/16/17 07:14 Last Admin: 09/17/17 23:43 Dose: 1 tab Aspirin (Aspirin Chewable) 81 mg PO DAILY [facility] Stop: 11/16/17 08:59 Last Admin: 09/18/17 08:22 Dose: 81 mg Bisacodyl (Dulcolax 10 Mg Supp) 10 mg RC DAILY PRN PRN Reason: Constipation Stop: 11/16/17 07:14 Docusate Sodium (Colace) 100 mg PO DAILY [facility] Stop: 11/16/17 08:59 Last Admin: 09/18/17 08:22 Dose: 100 mg Heparin Sodium (Porcine) (Heparin) 5,000 units SUBQ Q12H [facility] Stop: 11/16/17 20:59 Last Admin: 09/18/17 08:22 Dose: 5,000 units Hydralazine HCl (Apresoline 20 Mg/Ml) 10 mg IV Q6HR PRN PRN Reason: htn sbp >165 Stop: 11/16/17 07:18 Last Admin: 09/18/17 08:18 Dose: 10 mg Metronidazole (Flagyl) 500 mg in 100 mls @ 100 mls/hr IV Q8H [facility] Stop: 11/16/17 08:59 Last Infusion: 09/18/17 10:03 Dose: Infused Levofloxacin (Levaquin Pb) 250 mg in 50 mls @ 50 mls/hr IV Q24H [facility] Stop: 11/17/17 08:59 Last Infusion: 09/18/17 09:25 Dose: Infused Dextrose/Sodium Chloride (D5-0.45ns) 1,000 mls @ 125 mls/hr IV .Q8H [facility] Stop: 11/16/17 14:44 Last Admin: 09/18/17 06:48 Dose: 125 mls/hr Potassium Chloride (Potassium Chloride) 40 meq in 200 mls @ 50 mls/hr IV 0730 [facility] Stop: 09/19/17 11:29 Last Admin: 09/18/17 08:52 Dose: 50 mls/hr Insulin Aspart (Novolog Insulin Sliding Scale) 0 units SUBQ [facility]; Protocol Stop: 11/16/17 07:29 Last Admin: 09/18/17 12:45 Dose: Not Given Insulin Detemir (Levemir Insulin) 6 units SUBQ [facility]; Protocol Stop: 11/16/17 20:59 Last Admin: 09/17/17 20:35 Dose: 6 units Isosorbide Mononitrate (Imdur) 60 mg PO BID [facility] Stop: 11/16/17 08:59 Last Admin: 09/18/17 08:21 Dose: 60 mg Lorazepam (Ativan) 0.5 mg IVP Q4HR PRN; Protocol PRN Reason: Agitation Stop: 11/16/17 09:19 Last Admin: 09/18/17 08:59 Dose: 0.5 mg Magnesium Hydroxide (Milk Of Magnesia) 30 ml PO HS PRN PRN Reason: Constipation Stop: 11/16/17 07:14 Megestrol Acetate (Megace) 400 mg PO BID [facility] Stop: 11/16/17 08:59 Last Admin: 09/18/17 08:21 Dose: 400 mg Metoprolol Tartrate (Lopressor) 25 mg PO BID [facility] Stop: 11/16/17 08:59 Last Admin: 09/18/17 08:22 Dose: 25 mg Miscellaneous (Clinical Monitoring) 1 ea MC DAILY PRN PRN Reason: RENAL DOSING Stop: 11/16/17 08:05 Miscellaneous (Vte Chemical Prophylaxis Screen/ Admission) 1 ea MC PRN PRN PRN Reason: PROTOCOL Stop: 11/16/17 14:17 Miscellaneous (Misc Injection) 1 vial IVP Q3HR PRN PRN Reason: HEART RATE > 110 BPM Stop: 11/17/17 12:53 Pantoprazole Sodium (Protonix) 40 mg IVP DAILY [facility] Stop: 11/16/17 11:29 Last Admin: 09/18/17 08:21 Dose: 40 mg Polyethylene Glycol (Miralax) 17 gm PO DAILY [facility] Stop: 11/16/17 08:59 Last Admin: 09/18/17 09:51 Dose: Not Given Rivastigmine (Exelon 9.5 Mg/24 Hr Tdm) 1 patch TD DAILY [facility] Stop: 11/16/17 08:59 Last Admin: 09/18/17 10:00 Dose: 1 patch General: No acute distress HEENT: Atraumatic, Mucous membr. moist/pink Neck: Supple, +2 carotid pulse wo bruit Cardiovascular: Other (irregular, tachy) Lungs: Clear to auscultation Abdomen: Bowel sounds, Soft Extremities: no Edema Neurological: Sensation intact Skin: no Rash Psych/Mental Status: Mood NL Assessment/Plan - Assessment Assessment: ARF Hyperkalemia Cx UTI FTT Fecal impaction T2DM Dementia w/ behavioural disturbance Chronic A. fib - Plan Plan: Lab - Result Diagrams 09/18/17 04:40 09/18/17 04:40 Current Medications Acetaminophen (Tylenol) 650 mg PO Q6HR PRN PRN Reason: Pain or Fever >101 Stop: 11/16/17 07:14 Acetaminophen/Hydrocodone Bitart ([place] 5mg/325mg) 1 tab PO Q6H PRN PRN Reason: Pain (Severe) Stop: 11/16/17 07:14 Last Admin: 09/17/17 23:43 Dose: 1 tab Aspirin (Aspirin Chewable) 81 mg PO DAILY [facility] Stop: 11/16/17 08:59 Last Admin: 09/18/17 08:22 Dose: 81 mg Bisacodyl (Dulcolax 10 Mg Supp) 10 mg RC DAILY PRN PRN Reason: Constipation Stop: 11/16/17 07:14 Docusate Sodium (Colace) 100 mg PO DAILY [facility] Stop: 11/16/17 08:59 Last Admin: 09/18/17 08:22 Dose: 100 mg Heparin Sodium (Porcine) (Heparin) 5,000 units SUBQ Q12H [facility] Stop: 11/16/17 20:59 Last Admin: 09/18/17 08:22 Dose: 5,000 units Hydralazine HCl (Apresoline 20 Mg/Ml) 10 mg IV Q6HR PRN PRN Reason: htn sbp >165 Stop: 11/16/17 07:18 Last Admin: 09/18/17 08:18 Dose: 10 mg Metronidazole (Flagyl) 500 mg in 100 mls @ 100 mls/hr IV Q8H [facility] Stop: 11/16/17 08:59 Last Infusion: 09/18/17 10:03 Dose: Infused Levofloxacin (Levaquin Pb) 250 mg in 50 mls @ 50 mls/hr IV Q24H [facility] Stop: 11/17/17 08:59 Last Infusion: 09/18/17 09:25 Dose: Infused Dextrose/Sodium Chloride (D5-0.45ns) 1,000 mls @ 125 mls/hr IV .Q8H [facility] Stop: 11/16/17 14:44 Last Admin: 09/18/17 06:48 Dose: 125 mls/hr Potassium Chloride (Potassium Chloride) 40 meq in 200 mls @ 50 mls/hr IV 0730 [facility] Stop: 09/19/17 11:29 Last Admin: 09/18/17 08:52 Dose: 50 mls/hr Insulin Aspart (Novolog Insulin Sliding Scale) 0 units SUBQ [facility]; Protocol Stop: 11/16/17 07:29 Last Admin: 09/18/17 12:45 Dose: Not Given Insulin Detemir (Levemir Insulin) 6 units SUBQ [facility]; Protocol Stop: 11/16/17 20:59 Last Admin: 09/17/17 20:35 Dose: 6 units Isosorbide Mononitrate (Imdur) 60 mg PO BID [facility] Stop: 11/16/17 08:59 Last Admin: 09/18/17 08:21 Dose: 60 mg Lorazepam (Ativan) 0.5 mg IVP Q4HR PRN; Protocol PRN Reason: Agitation Stop: 11/16/17 09:19 Last Admin: 09/18/17 08:59 Dose: 0.5 mg Magnesium Hydroxide (Milk Of Magnesia) 30 ml PO HS PRN PRN Reason: Constipation Stop: 11/16/17 07:14 Megestrol Acetate (Megace) 400 mg PO BID [facility] Stop: 11/16/17 08:59 Last Admin: 09/18/17 08:21 Dose: 400 mg Metoprolol Tartrate (Lopressor) 25 mg PO BID [facility] Stop: 11/16/17 08:59 Last Admin: 09/18/17 08:22 Dose: 25 mg Miscellaneous (Clinical Monitoring) 1 ea MC DAILY PRN PRN Reason: RENAL DOSING Stop: 11/16/17 08:05 Miscellaneous (Vte Chemical Prophylaxis Screen/ Admission) 1 ea MC PRN PRN PRN Reason: PROTOCOL Stop: 11/16/17 14:17 Miscellaneous (Misc Injection) 1 vial IVP Q3HR PRN PRN Reason: HEART RATE > 110 BPM Stop: 11/17/17 12:53 Pantoprazole Sodium (Protonix) 40 mg IVP DAILY [facility] Stop: 11/16/17 11:29 Last Admin: 09/18/17 08:21 Dose: 40 mg Polyethylene Glycol (Miralax) 17 gm PO DAILY [facility] Stop: 11/16/17 08:59 Last Admin: 09/18/17 09:51 Dose: Not Given Rivastigmine (Exelon 9.5 Mg/24 Hr Tdm) 1 patch TD DAILY [facility] Stop: 11/16/17 08:59 Last Admin: 09/18/17 10:00 Dose: 1 patch Lab - Result Diagrams 09/18/17 04:40 09/18/17 04:40 kidney fnc improved w/ BUN/CR of 188/3.7 now nonoliguric replace K, MG start Cardizem for A. fib w/ RVR Echo LVH, EJF 55% continue hydration Nutritional Asmnt/Malnutr-PDOC - Dietary Evaluation Malnutrition Findings (Please click <Entered> for more info): Nutritional Asmnt/Malnutrition Start: 09/17/17 14: 32 Text: Status: Complete Freq: Protocol: Document 09/17/17 14:35 BGG (Rec: 09/17/17 15:03 TONY [id number]) Nutritional Asmnt/Malnutrition Patient General Information Nutritional Screening High Risk Consult Diagnosis hyperkalemia, renal failure, dehydration Pertinent Medical Hx/Surgical Hx HTN, DM, UTI, major depression , anemia, hypercholesterolemia , vit D deficiency, CHF, dyslipidemia, arthritis, dementia, CHF, depression, dementia Subjective Information Consult received for Negrito Wray . Pt seen lying in bed at time of visit. Pt has NGT noted. Current Diet Order/ Nutrition Support NPO Pertinent Medications D5-0.45ns, colace, novolog, levemir, levaquin, megace, protonix, miralax Pertinent Labs 09/17 K 5.9, cl 110, BUN 210, Cr 4.6, glucose 197, POC 146-225 , Ca 11.1, K 6.7 09/16 K 6.4, Cl 108, BUN 223, Cr 4.8, glucose 116, Ca 11.5 Nutritional Hx/Data Height 1.7 m Height (Calculated Centimeters) 170.2 Current Weight (lbs) 53.07 kg Weight (Calculated Kilograms) 53.1 Weight (Calculated Grams) 93597.3 [place] Body Weight 135 % [place] Body Weight 86 Body Mass Index (BMI) 18.3 Weight Status Underweight GI Symptoms GI Symptoms None Last BM 09/17 x 4 Difficult in: None Usual diet at home soft NCS [place] at care facility per chart Skin Integrity/Comment: pressure area reddended to right/left foot Estimated Nutritional Goals BEE in Kcals: Using Current wt Calories/Kcals/Kg 27-32 Kcals Calculated 6999-4005 Protein: Using Current wt Protein g/kg: per MD Protein Calculated per MD Fluid: ml Per MD Nutritional Problem 1. Problem Problem altered nutrition related labs Etiology electrolytes/fluid imbalance, renal failure, hx of DM Signs/Symptoms: K 5.9, cl 110, BUN 210, Cr 4.6 , glucose 197, POC 146-225, Ca 11.1, K 6.7 Malnutrition Alert Is there a minimum of two criteria No selected? Query Text:Check all the applicable criteria. A minimum of two criteria are recommended for diagnosis of either severe or non-severe malnutrition. Malnutrition Related to Morbid Obesity Malnutrition related to morbid obesity No Intervention/Recommendation Comments 1. Monitor NPO status. 2. Monitor wt, labs and skin integrity 3. F/U as high risk in 2-3 days, 09/19-09/20 Expected Outcomes/Goals Expected Outcomes/Goals 1. PO intake to meet at least 75% of nutritional needs. 2. Wt stability, skin to remain intact, labs to approach WNL.
[2017-09-18] MEDS ORDERED: Mag Sulfate 2gm/50mL Premix 2 GM/50 ML BAG IV ONE (13:11)
[2017-09-18] MEDS: Hydrocodone/APAP 5mg/325mg Tab PO PRN (13:45)
[2017-09-18] MEDS ORDERED: Diltiazem 5 mg/mL 5mL Vial IVP PRN (13:52)
[2017-09-18 19:18] LABS: ANION GAP 16.2 (7.0-16.0); CALCIUM SERUM 9.4 mg/dL (8.6-10.3); CARBON DIOXIDE 17.2 mEq/L (21.0-31.0); CHLORIDE 113 mEq/L (98-107); CREATININE - SERUM 3.3 mg/dL (0.6-1.2); GLUCOSE 150 mg/dL (70-105); SODIUM SERUM 144 mEq/L (136-145)
[2017-09-18 19:34] LABS: BUN - UREA NITROGEN 167 mg/dL (7-25); POTASSIUM SERUM 2.4 mEq/L (3.5-5.1)
[2017-09-18] MEDS: Insulin Detemir 100 units/mL 10mL Vial SUBQ SCH (20:56)
[2017-09-18] MEDS ORDERED: Atorvastatin Calcium 10 MG TAB PO SCH ×2 (21:00)
[2017-09-18] MEDS: Diltiazem 30 mg Tab PO SCH (21:32)
[2017-09-19] MEDS: Hydrocodone/APAP 5mg/325mg Tab PO PRN ×3 (00:04→13:32)
[2017-09-19] MEDS: D5-0.45NS 1,000 ML IV SCH (00:09)
[2017-09-19] MEDS: metroNIDAZOLE 500mg/NS 100mL 500 MG/100 ML BAG IV SCH ×3 (00:55→16:46)
[2017-09-19] MEDS: Diltiazem 30 mg Tab PO SCH ×3 (04:39→21:05)
[2017-09-19 05:06] LABS: MEAN CORPUSCULAR HEMOGLOBIN 29.9 pg (27.0-31.0); WHITE BLOOD COUNT 10.9 Th/cmm (4.8-10.8)
[2017-09-19 05:11] LABS: HEMATOCRIT 30.4 % (41.0-60); HEMOGLOBIN 10.3 gm/dL (12-16); MEAN PLATELET VOLUME 7.6 fl; PLATELET COUNT 262 Th/cmm (150-400); RED BLOOD COUNT 3.45 Mil/cmm (3.80-5.20)
[2017-09-19 05:12] LABS: MANUAL DIFF REQUIRED? YES
[2017-09-19 05:32] LABS: ALB/GLOB RATIO 1.5 (1.0-1.8); ALBUMIN 3.4 gm/dL (3.7-5.3); ALKALINE PHOSPHATASE 46 U/L (34-104); ANION GAP 16.8 (7.0-16.0); BILIRUBIN,TOTAL 0.6 mg/dL (0.3-1.0); CALCIUM SERUM 9.3 mg/dL (8.6-10.3); CARBON DIOXIDE 15.9 mEq/L (21.0-31.0); CHLORIDE 114 mEq/L (98-107); CREATININE - SERUM 3.1 mg/dL (0.6-1.2); GLUCOSE 174 mg/dL (70-105); SGOT 54 U/L (13-39); SGPT/ALT 26 U/L (7-52); SODIUM SERUM 144 mEq/L (136-145); TOTAL PROTEIN,SERUM 5.7 gm/dL (6.0-8.3)
[2017-09-19 05:56] LABS: BAND NEUTROPHILE 1 % (0-10); EOSINOPHIL 1 % (0-5); LYMPHOCYTE 11 % (20-50); NEUTROPHILS 87 % (40-80); PLATELET ESTIMATE ADEQUATE (NORMAL); TOTAL CELLS COUNTED 100
[2017-09-19 05:57] LABS: BURR CELLS 1+
[2017-09-19 06:03] LABS: POTASSIUM SERUM 2.7 mEq/L (3.5-5.1)
[2017-09-19 06:04] LABS: BUN - UREA NITROGEN 154 mg/dL (7-25)
[2017-09-19] MEDS ORDERED: SODIUM CHLORIDE 0.9% IV ONE (06:29)
[2017-09-19] MEDS ORDERED: POTASSIUM CHLORIDE IV ONE (06:29)
[2017-09-19] MEDS ORDERED: LIDOCAINE IV ONE (06:29)
[2017-09-19] MEDS ORDERED: Sodium Bicarbonate 8.4% 50mEq PFS IVP ONE (06:32)
[2017-09-19] MEDS: INSULIN ASPART SLIDING SCALE 100 UNITS/ML UNIT SUBQ SCH ×4 (07:00→21:09)
[2017-09-19] MEDS: Aspirin 81mg Chewable Tab PO SCH ×2 (07:00→15:29)
[2017-09-19] MEDS ORDERED: [UNRECOGNIZED DRUG - OTHER] IV SCH (07:00)
[2017-09-19] MEDS ORDERED: POTASSIUM CHLORIDE IV SCH (07:00)
[2017-09-19] MEDS ORDERED: DEXTROSE IV SCH (07:00)
[2017-09-19] MEDS: Rivastigmine 9.5 mg/24 hr Tdm TD SCH (08:44)
[2017-09-19] MEDS: POLYETHYLENE GLYCOL 3350 17 GM PACK PO SCH (08:45)
--- NOTE | 2017-09-19 09:18 | Diagnostic Imaging Report ---
CHEST X-RAY: AP view INDICATION: NG tube confirmation COMPARISON: 09/17/2017 FINDINGS: NG tube is within the stomach. Calcified hilar granulomas are noted. No focal consolidation or effusions. Heart size is normal. IMPRESSION: NG tube within the stomach. No focal consolidation identified.
--- NOTE | 2017-09-19 09:44 | Diagnostic Imaging Report ---
Renal ultrasound HISTORY: Renal failure. COMPARISON: None Technique: Sonography of the kidneys and urinary bladder was performed in multiple planes. FINDINGS: Exam is limited as patient was uncooperative. The right kidney measures 9.1 x 4.5 cm. 4 mm echogenic focus of the right mid kidney is noted. No hydronephrosis. The left kidney measures 9.8 x 5.2 cm. Small echogenic foci of the left kidney are noted. There is suggestion of left renal cysts the largest along the upper pole measuring 1.9 x 1.8 cm. There may be calcifications within the cysts. No hydronephrosis. Avila catheter is seen within collapsed bladder with low level echoes in the urinary bladder. IMPRESSION: Limited exam as patient was uncooperative. No evidence of hydronephrosis. Small echogenic foci of both kidneys which may represent renal sinus fat versus nonobstructive stones. Left renal cyst. Some of the cysts may demonstrate small calcifications. If indicated CT follow-up would further clarify Avila catheter within collapsed urinary bladder limiting its evaluation. Low-level echoes are seen within the urinary bladder which may be due to debris or clot formation.
[2017-09-19] MEDS: Levofloxacin 250mg/50mL 250 MG/50 ML BAG IV SCH (09:51)
[2017-09-19] MEDS: KCL 20mEq/100mL Premix Bag IV SCH (09:53)
[2017-09-19] MEDS: D5-0.45NS w/10 mEq KCL 1,000 ML IV SCH ×2 (11:19→22:07)
--- NOTE | 2017-09-19 13:20 | General Progress Note ---
Subjective - Review of Systems Service Date: 09/19/17 Subjective: sleeping, more quiet Objective - Results Result Diagrams: 09/19/17 04:50 09/19/17 04:50 Recent Labs: Laboratory Last Values WBC 10.9 Th/cmm (4.8-10.8) H 09/19/17 04:50 RBC 3.45 Mil/cmm (3.80-5.20) L 09/19/17 04:50 Hgb 10.3 gm/dL (12-16) L 09/19/17 04:50 Hct 30.4 % (41.0-60) L 09/19/17 04:50 MCV 88.0 fl (81-100) 09/19/17 04:50 MCH 29.9 pg (27.0-31.0) 09/19/17 04:50 MCHC Differential 34.0 pg (28.0-36.0) 09/19/17 04:50 RDW 14.0 % (11.5-20.0) 09/19/17 04:50 Plt Count 262 Th/cmm (150-400) 09/19/17 04:50 MPV 7.6 fl 09/19/17 04:50 Neutrophils % 94.5 % (40.0-80.0) H 09/17/17 07:05 Band Neutrophils % 1 % (0-10) 09/19/17 04:50 Lymphocytes % 2.7 % (20.0-50.0) L 09/17/17 07:05 Monocytes % 2.2 % (2.0-10.0) 09/17/17 07:05 Eosinophils % 0.3 % (0.0-5.0) 09/17/17 07:05 Basophils % 0.3 % (0.0-2.0) 09/17/17 07:05 Neutrophils (Manual) 87 % (40-80) H 09/19/17 04:50 Lymphocytes 11 % (20-50) L 09/19/17 04:50 Monocytes 4 % (2-10) 09/18/17 04:40 Eosinophils 1 % (0-5) 09/19/17 04:50 Basophils 0 % (0-3) 09/18/17 04:40 Platelet Estimate ADEQUATE (NORMAL) 09/19/17 04:50 Platelet Morphology NORMAL (NORMAL) 09/18/17 04:40 Jose Cells 1+ 09/19/17 04:50 RBC Morph Micro Appear NORMAL (NORMAL) 09/18/17 04:40 Eos Smear Source URINE 09/17/17 17:40 Eos Smear Total Cells NONE SEEN (NONE SEEN) 09/17/17 17:40 Specimen Source ARTERIAL 09/17/17 01:06 Sample Site Right Radial 09/17/17 01:06 pH 7.39 (7.35-7.45) 09/17/17 01:06 pCO2 22.0 mmHg (35.0-45.0) L* 09/17/17 01:06 pO2 105.0 mmHg (80.0-100.0) H 09/17/17 01:06 HCO3 17.4 mEq/L (20.0-26.0) L 09/17/17 01:06 Base Excess -9.7 mEq/L (-3.0-3.0) L 09/17/17 01:06 O2 Saturation 98.0 % (92.0-100.0) 09/17/17 01:06 Dheeraj Test Positive 09/17/17 01:06 Vent Rate N/A 09/17/17 01:06 Inspired O2 21 09/17/17 01:06 Tidal Volume N/A 09/17/17 01:06 PEEP N/A 09/17/17 01:06 Pressure (ins/psv/peep) N/A 09/17/17 01:06 Critical Value MM,CORRECTIONAL CAPTAIN 09/17/17 01:06 Sodium 144 mEq/L (136-145) 09/19/17 04:50 Potassium 2.7 mEq/L (3.5-5.1) L* 09/19/17 04:50 Chloride 114 mEq/L (98-107) H 09/19/17 04:50 Carbon Dioxide 15.9 mEq/L (21.0-31.0) L 09/19/17 04:50 Anion Gap 16.8 (7.0-16.0) H 09/19/17 04:50 BUN 154 mg/dL (7-25) H* 09/19/17 04:50 Creatinine 3.1 mg/dL (0.6-1.2) H 09/19/17 04:50 Est GFR ( Amer) TNP 09/19/17 04:50 Est GFR (Non-Af Amer) TNP 09/19/17 04:50 BUN/Creatinine Ratio 49.7 09/19/17 04:50 Glucose 174 mg/dL (70-105) H 09/19/17 04:50 POC Glucose 157 MG/DL (70 - 105) H 09/18/17 17:12 Hemoglobin A1c % 5.9 % (4.0-6.0) 09/17/17 07:05 Whole Bld Lactic Acid 1.31 mmol/L (0.60-1.99) 09/16/17 22:02 Uric Acid 8.8 mg/dL (2.3-6.6) H 09/18/17 04:40 Calcium 9.3 mg/dL (8.6-10.3) 09/19/17 04:50 Phosphorus 6.7 mg/dL (2.5-5.0) H 09/17/17 07:05 Magnesium 2.0 mg/dL (1.9-2.7) 09/19/17 04:50 Total Bilirubin 0.6 mg/dL (0.3-1.0) 09/19/17 04:50 AST 54 U/L (13-39) H 09/19/17 04:50 ALT 26 U/L (7-52) 09/19/17 04:50 Alkaline Phosphatase 46 U/L (34-104) 09/19/17 04:50 Troponin I 4.64 ng/mL (0.01-0.05) H* D 09/19/17 04:50 B-Natriuretic Peptide 174.0 pg/mL (5.0-100.0) H 09/17/17 07:05 Total Protein 5.7 gm/dL (6.0-8.3) L 09/19/17 04:50 Albumin 3.4 gm/dL (3.7-5.3) L 09/19/17 04:50 Globulin 2.3 gm/dL 09/19/17 04:50 Albumin/Globulin Ratio 1.5 (1.0-1.8) 09/19/17 04:50 TSH 0.59 uIU/ml (0.34-5.60) 09/17/17 07:05 Urine Source [place] 09/17/17 02:30 Urine Color YELLOW 09/17/17 02:30 Urine Clarity HAZY (CLEAR) 09/17/17 02:30 Urine pH 8.5 (4.6 - 8.0) 09/17/17 02:30 Ur Specific [place] 1.010 (1.005-1.030) 09/17/17 02:30 Urine Protein 30 mg/dL (NEGATIVE) H 09/17/17 02:30 Urine Glucose (UA) NEGATIVE mg/dL (NEGATIVE) 09/17/17 02:30 Urine Ketones NEGATIVE mg/dL (NEGATIVE) 09/17/17 02:30 Urine Blood SMALL (NEGATIVE) H 09/17/17 02:30 Urine Nitrate NEGATIVE (NEGATIVE) 09/17/17 02:30 Urine Bilirubin NEGATIVE (NEGATIVE) 09/17/17 02:30 Urine Urobilinogen 0.2 E.U./dL (0.2 - 1.0) 09/17/17 02:30 Ur Leukocyte Esterase LARGE (NEGATIVE) H 09/17/17 02:30 Urine RBC 2-5 /hpf (0-5) 09/17/17 02:30 Urine WBC 25-50 /hpf (0-5) H 09/17/17 02:30 Ur Epithelial Cells MODERATE /lpf (FEW) 09/17/17 02:30 Urine Bacteria MANY /hpf (NONE SEEN) H 09/17/17 02:30 Urine Osmolality 426 mOsmol/kg 09/17/17 17:40 U Random Total Protein 39.0 mg/dL 09/18/17 19:00 Ur Random Sodium 33 mmol/L 09/17/17 17:40 Urine Collection Time 24 hours 09/18/17 19:00 Urine Total Volume 900 ml 09/18/17 19:00 Urine Creatinine 65.0 mg/dl (28.0-217.0) 09/17/17 17:40 U Tot Protein 24h, Calc 39.0 mg/24 hr (0-165) 09/18/17 19:00 - Physical Exam Vitals and I&O: Vital Signs Temp 96.5 F 09/19/17 08:00 Pulse 78 09/19/17 08:43 Resp 16 09/19/17 08:00 BP 155/61 09/19/17 08:43 Pulse Ox 100 09/19/17 08:00 Intake & Output 06/02/18 06/03/18 06/03/18 18:59 06:59 18:59 Intake Total 1500 2544.917 Output Total 1000 Balance 1500 1544.917 Weight (lbs) 568.351 kg Intake: Intake, IV Amount 1500 1949.917 D5-0.45NS 1,000 ml @ 125 1000 1572.917 mls/hr IV .Q8H [facility] Rx#: [id number] KCL 20mEq/100mL Premix 40 200 meq In 200 ml @ 50 mls/ hr IV 0730 [facility] Rx#: [id number] Levofloxacin 250mg/50mL 50 250 mg In 50 ml @ 50 mls/ hr IV Q24H [facility] Rx#: [id number] metroNIDAZOLE 500mg/NS 200 100 100mL 500 mg In 100 ml @ 100 mls/hr IV Q8H [facility] Rx# :[id number] Tube Feeding 220 Other 375 Output: Urine 1000 Other: # Bowel Movements 0 Stool Characteristics Soft Formed Weight Source Bedscale Active Medications: Current Medications Acetaminophen (Tylenol) 650 mg PO Q6HR PRN PRN Reason: Pain or Fever >101 Stop: 11/16/17 07:14 Acetaminophen/Hydrocodone Bitart ([place] 5mg/325mg) 1 tab PO Q6H PRN PRN Reason: Pain (Severe) Stop: 11/16/17 07:14 Last Admin: 09/19/17 05:47 Dose: 1 tab Aspirin (Aspirin Chewable) 325 mg PO DAILY [facility] Stop: 11/18/17 06:59 Last Admin: 09/19/17 07:00 Dose: 325 mg Atorvastatin Calcium (Lipitor) 20 mg PO [facility]; Protocol Stop: 11/18/17 20:59 Bisacodyl (Dulcolax 10 Mg Supp) 10 mg RC DAILY PRN PRN Reason: Constipation Stop: 11/16/17 07:14 Diltiazem HCl (Cardizem) 30 mg PO Q8HR [facility] Stop: 11/17/17 20:59 Last Admin: 09/19/17 04:39 Dose: 30 mg Diltiazem HCl (Cardizem) 5 mg IVP Q3HR PRN PRN Reason: HEART RATE > 110 Stop: 11/17/17 13:51 Docusate Sodium (Colace) 100 mg PO DAILY [facility] Stop: 11/16/17 08:59 Last Admin: 09/19/17 08:44 Dose: 100 mg Heparin Sodium (Porcine) (Heparin) 5,000 units SUBQ Q12H [facility] Stop: 11/16/17 20:59 Last Admin: 09/19/17 08:45 Dose: 5,000 units Hydralazine HCl (Apresoline 20 Mg/Ml) 10 mg IV Q6HR PRN PRN Reason: htn sbp >165 Stop: 11/16/17 07:18 Last Admin: 09/18/17 08:18 Dose: 10 mg Metronidazole (Flagyl) 500 mg in 100 mls @ 100 mls/hr IV Q8H [facility] Stop: 11/16/17 08:59 Last Admin: 09/19/17 08:45 Dose: 100 mls/hr Levofloxacin (Levaquin Pb) 250 mg in 50 mls @ 50 mls/hr IV Q24H [facility] Stop: 11/17/17 08:59 Last Admin: 09/19/17 09:51 Dose: 50 mls/hr Potassium Chloride/Dextrose/Sod Cl (D5-0.45ns W/10 Meq Kcl) 1,000 mls @ 100 mls /hr IV .Q10H [facility] Stop: 11/18/17 09:59 Last Admin: 09/19/17 11:19 Dose: 100 mls/hr Insulin Aspart (Novolog Insulin Sliding Scale) 0 units SUBQ ACHS [facility]; Protocol Stop: 11/16/17 07:29 Last Admin: 09/19/17 12:09 Dose: Not Given Insulin Detemir (Levemir Insulin) 6 units SUBQ HS [facility]; Protocol Stop: 11/16/17 20:59 Last Admin: 09/18/17 20:56 Dose: Not Given Isosorbide Mononitrate (Imdur) 60 mg PO BID [facility] Stop: 11/16/17 08:59 Last Admin: 09/19/17 08:43 Dose: 60 mg Lorazepam (Ativan) 0.5 mg IVP Q4HR PRN; Protocol PRN Reason: Agitation Stop: 11/16/17 09:19 Last Admin: 09/19/17 04:37 Dose: 0.5 mg Magnesium Hydroxide (Milk Of Magnesia) 30 ml PO HS PRN PRN Reason: Constipation Stop: 11/16/17 07:14 Megestrol Acetate (Megace) 400 mg PO BID [facility] Stop: 11/16/17 08:59 Last Admin: 09/19/17 08:44 Dose: 400 mg Metoprolol Tartrate (Lopressor) 25 mg PO BID [facility] Stop: 11/16/17 08:59 Last Admin: 09/19/17 08:42 Dose: 25 mg Miscellaneous (Clinical Monitoring) 1 ea MC DAILY PRN PRN Reason: RENAL DOSING Stop: 11/16/17 08:05 Miscellaneous (Vte Chemical Prophylaxis Screen/ Admission) 1 ea MC PRN PRN PRN Reason: PROTOCOL Stop: 11/16/17 14:17 Pantoprazole Sodium (Protonix) 40 mg IVP DAILY [facility] Stop: 11/16/17 11:29 Last Admin: 09/19/17 08:44 Dose: 40 mg Polyethylene Glycol (Miralax) 17 gm PO DAILY [facility] Stop: 11/16/17 08:59 Last Admin: 09/19/17 08:45 Dose: 17 gm Rivastigmine (Exelon 9.5 Mg/24 Hr Tdm) 1 patch TD DAILY [facility] Stop: 11/16/17 08:59 Last Admin: 09/19/17 08:44 Dose: 1 patch Sodium Bicarbonate (Sodium Bicarbonate) 650 mg PO TID [facility]; Protocol Stop: 11/18/17 08:59 Last Admin: 09/19/17 08:43 Dose: 650 mg General: No acute distress HEENT: Atraumatic, Mucous membr. moist/pink Neck: Supple, +2 carotid pulse wo bruit Cardiovascular: Other (irregular) Lungs: Clear to auscultation Abdomen: Bowel sounds, Soft Extremities: no Edema Neurological: Sensation intact Skin: no Rash Psych/Mental Status: Mood NL Assessment/Plan - Assessment Assessment: ARF Hyperkalemia Cx UTI FTT Fecal impaction T2DM Dementia w/ behavioural disturbance Chronic A. fib NSTE GA - Plan Plan: Lab - Result Diagrams 09/18/17 04:40 09/18/17 04:40 Current Medications Acetaminophen (Tylenol) 650 mg PO Q6HR PRN PRN Reason: Pain or Fever >101 Stop: 11/16/17 07:14 Acetaminophen/Hydrocodone Bitart ([place] 5mg/325mg) 1 tab PO Q6H PRN PRN Reason: Pain (Severe) Stop: 11/16/17 07:14 Last Admin: 09/17/17 23:43 Dose: 1 tab Aspirin (Aspirin Chewable) 81 mg PO DAILY [facility] Stop: 11/16/17 08:59 Last Admin: 09/18/17 08:22 Dose: 81 mg Bisacodyl (Dulcolax 10 Mg Supp) 10 mg RC DAILY PRN PRN Reason: Constipation Stop: 11/16/17 07:14 Docusate Sodium (Colace) 100 mg PO DAILY [facility] Stop: 11/16/17 08:59 Last Admin: 09/18/17 08:22 Dose: 100 mg Heparin Sodium (Porcine) (Heparin) 5,000 units SUBQ Q12H [facility] Stop: 11/16/17 20:59 Last Admin: 09/18/17 08:22 Dose: 5,000 units Hydralazine HCl (Apresoline 20 Mg/Ml) 10 mg IV Q6HR PRN PRN Reason: htn sbp >165 Stop: 11/16/17 07:18 Last Admin: 09/18/17 08:18 Dose: 10 mg Metronidazole (Flagyl) 500 mg in 100 mls @ 100 mls/hr IV Q8H [facility] Stop: 11/16/17 08:59 Last Infusion: 09/18/17 10:03 Dose: Infused Levofloxacin (Levaquin Pb) 250 mg in 50 mls @ 50 mls/hr IV Q24H [facility] Stop: 11/17/17 08:59 Last Infusion: 09/18/17 09:25 Dose: Infused Dextrose/Sodium Chloride (D5-0.45ns) 1,000 mls @ 125 mls/hr IV .Q8H [facility] Stop: 11/16/17 14:44 Last Admin: 09/18/17 06:48 Dose: 125 mls/hr Potassium Chloride (Potassium Chloride) 40 meq in 200 mls @ 50 mls/hr IV 0730 [facility] Stop: 09/19/17 11:29 Last Admin: 09/18/17 08:52 Dose: 50 mls/hr Insulin Aspart (Novolog Insulin Sliding Scale) 0 units SUBQ ACHS [facility]; Protocol Stop: 11/16/17 07:29 Last Admin: 09/18/17 12:45 Dose: Not Given Insulin Detemir (Levemir Insulin) 6 units SUBQ HS [facility]; Protocol Stop: 11/16/17 20:59 Last Admin: 09/17/17 20:35 Dose: 6 units Isosorbide Mononitrate (Imdur) 60 mg PO BID [facility] Stop: 11/16/17 08:59 Last Admin: 09/18/17 08:21 Dose: 60 mg Lorazepam (Ativan) 0.5 mg IVP Q4HR PRN; Protocol PRN Reason: Agitation Stop: 11/16/17 09:19 Last Admin: 09/18/17 08:59 Dose: 0.5 mg Magnesium Hydroxide (Milk Of Magnesia) 30 ml PO HS PRN PRN Reason: Constipation Stop: 11/16/17 07:14 Megestrol Acetate (Megace) 400 mg PO BID [facility] Stop: 11/16/17 08:59 Last Admin: 09/18/17 08:21 Dose: 400 mg Metoprolol Tartrate (Lopressor) 25 mg PO BID [facility] Stop: 11/16/17 08:59 Last Admin: 09/18/17 08:22 Dose: 25 mg Miscellaneous (Clinical Monitoring) 1 ea MC DAILY PRN PRN Reason: RENAL DOSING Stop: 11/16/17 08:05 Miscellaneous (Vte Chemical Prophylaxis Screen/ Admission) 1 ea MC PRN PRN PRN Reason: PROTOCOL Stop: 11/16/17 14:17 Miscellaneous (Misc Injection) 1 vial IVP Q3HR PRN PRN Reason: HEART RATE > 110 BPM Stop: 11/17/17 12:53 Pantoprazole Sodium (Protonix) 40 mg IVP DAILY [facility] Stop: 11/16/17 11:29 Last Admin: 09/18/17 08:21 Dose: 40 mg Polyethylene Glycol (Miralax) 17 gm PO DAILY [facility] Stop: 11/16/17 08:59 Last Admin: 09/18/17 09:51 Dose: Not Given Rivastigmine (Exelon 9.5 Mg/24 Hr Tdm) 1 patch TD DAILY [facility] Stop: 11/16/17 08:59 Last Admin: 09/18/17 10:00 Dose: 1 patch Lab - Result Diagrams 09/19/17 04:50 09/19/17 04:50 kidney fnc improved w/ BUN/CR of 154/3.1 now nonoliguric replace K, MG start Cardizem for A. fib w/ RVR Echo LVH, EJF 55% continue hydration elevated Troponin on ASA, metoprolol Nutritional Asmnt/Malnutr-PDOC - Dietary Evaluation Malnutrition Findings (Please click <Entered> for more info): Nutritional Asmnt/Malnutrition Start: 09/17/17 14: 32 Text: Status: Complete Freq: Protocol: Document 09/17/17 14:35 ZACHARYRHONDA (Rec: 09/17/17 15:03 [email or web address] [id number]) Nutritional Asmnt/Malnutrition Patient General Information Nutritional Screening High Risk Consult Diagnosis hyperkalemia, renal failure, dehydration Pertinent Medical Hx/Surgical Hx HTN, DM, UTI, major depression , anemia, hypercholesterolemia , vit D deficiency, CHF, dyslipidemia, arthritis, dementia, CHF, depression, dementia Subjective Information Consult received for Negrito 12 . Pt seen lying in bed at time of visit. Pt has NGT noted. Current Diet Order/ Nutrition Support NPO Pertinent Medications D5-0.45ns, colace, novolog, levemir, levaquin, megace, protonix, miralax Pertinent Labs 09/17 K 5.9, cl 110, BUN 210, Cr 4.6, glucose 197, POC 146-225 , Ca 11.1, K 6.7 09/16 K 6.4, Cl 108, BUN 223, Cr 4.8, glucose 116, Ca 11.5 Nutritional Hx/Data Height 1.7 m Height (Calculated Centimeters) 170.2 Current Weight (lbs) 53.07 kg Weight (Calculated Kilograms) 53.1 Weight (Calculated Grams) 71077.3 [place] Body Weight 135 % [place] Body Weight 86 Body Mass Index (BMI) 18.3 Weight Status Underweight GI Symptoms GI Symptoms None Last BM 09/17 x 4 Difficult in: None Usual diet at home soft NCS MOON at care facility per chart Skin Integrity/Comment: pressure area reddended to right/left foot Estimated Nutritional Goals BEE in Kcals: Using Current wt Calories/Kcals/Kg 27-32 Kcals Calculated 6211-3881 Protein: Using Current wt Protein g/kg: per MD Protein Calculated per MD Fluid: ml Per MD Nutritional Problem 1. Problem Problem altered nutrition related labs Etiology electrolytes/fluid imbalance, renal failure, hx of DM Signs/Symptoms: K 5.9, cl 110, BUN 210, Cr 4.6 , glucose 197, POC 146-225, Ca 11.1, K 6.7 Malnutrition Alert Is there a minimum of two criteria No selected? Query Text:Check all the applicable criteria. A minimum of two criteria are recommended for diagnosis of either severe or non-severe malnutrition. Malnutrition Related to Morbid Obesity Malnutrition related to morbid obesity No Intervention/Recommendation Comments 1. Monitor NPO status. 2. Monitor wt, labs and skin integrity 3. F/U as high risk in 2-3 days, 09/19-09/20 Expected Outcomes/Goals Expected Outcomes/Goals 1. PO intake to meet at least 75% of nutritional needs. 2. Wt stability, skin to remain intact, labs to approach WNL.
[2017-09-19 17:32] LABS: ANION GAP 12.5 (7.0-16.0); CALCIUM SERUM 9.1 mg/dL (8.6-10.3); CARBON DIOXIDE 20.9 mEq/L (21.0-31.0); CHLORIDE 115 mEq/L (98-107); CREATININE - SERUM 2.8 mg/dL (0.6-1.2); GLUCOSE 163 mg/dL (70-105); POTASSIUM SERUM 3.4 mEq/L (3.5-5.1); SODIUM SERUM 145 mEq/L (136-145)
[2017-09-19 17:51] LABS: BUN - UREA NITROGEN 140 mg/dL (7-25)
[2017-09-19] MEDS: Atorvastatin Calcium 10 MG TAB PO SCH (21:06)
[2017-09-19] MEDS: Insulin Detemir 100 units/mL 10mL Vial SUBQ SCH (21:07)
[2017-09-20] MEDS: Hydrocodone/APAP 5mg/325mg Tab PO PRN ×3 (00:05→23:16)
--- NOTE | 2017-09-20 00:24 | Progress Notes ---
DATE: 09/19/2017 SUBJECTIVE: The patient remains in the Intensive Care Unit lethargic. PHYSICAL EXAMINATION: VITAL SIGNS: Afebrile. Heart rate controlled. HEENT: Normocephalic, atraumatic. Pupils equal, round, react to light and accommodation. CHEST: Symmetrical. LUNGS: Few wheezing appreciated. CARDIAC: Normal sinus rhythm, S1, S2. ABDOMEN: Benign, soft, nontender. EXTREMITIES: No clubbing, cyanosis, edema. Bilateral 2+. NEUROLOGICAL: Basically unremarkable. LABORATORY DATA: Reviewed. Significant for acute elevated troponin to 4.64 from 0.11 yesterday. The patient's potassium was 2.7 earlier after 40 mEq K rider given, increased to 3.4. BUN 154, creatinine 3.1 earlier today, on repeat test both decreased to 148/2.8 respectively. [facility], the patient's urine culture came back with Proteus mirabilis, which is sensitive to Zosyn. ASSESSMENT AND PLAN: 1. Acute elevated troponin: We will repeat troponin x 3 and the patient is on aspirin 325 mg daily and Lipitor increased to 20 mg today. The patient is already on metoprolol 20 mg. No DELMI inhibitor or ARB due to acute renal failure. 2. Atrial fibrillation with rate control. 3. Acute renal failure, improving with IV hydration. 4. Altered level of consciousness due to metabolic encephalopathy, dementia. 5. Multidrug resistant Proteus mirabilis urinary tract infection: I will adjust antibiotics to Rocephin 1 g daily as it is sensitive. 6. Hypokalemia: Supplement. 7. Leukocytosis, significantly improved. 8. DVT prophylaxis. 9. Continue ICU care. JOB# [id number]
--- NOTE | 2017-09-20 01:21 | Consultation ---
DATE OF CONSULTATION: 09/19/[address] Cabello. HISTORY AND PHYSICAL: This is an 82-year-old -[place] female patient who was brought to the Emergency Room because the patient was lethargic and confused. The patient has not been eating for 3 days. The patient was found to have acute renal failure with slightly elevated troponin level. Following this, troponin level increased and cardiac consult was requested. PAST MEDICAL HISTORY: Hypertension, congestive heart failure, diastolic dysfunction, diabetes mellitus type 2, degenerative joint disease, dementia, major depression, hyperlipidemia and urinary tract infection. FAMILY HISTORY: Unremarkable. SOCIAL HISTORY: No history of smoking or alcohol abuse. ALLERGIES: PENICILLIN. PHYSICAL EXAMINATION: VITAL SIGNS: Blood pressure 140/80, pulse 70 and respirations 20. HEAD: Normocephalic. No lumps or bumps. EYES: Pupils equal, reactive to light. Fundi show AV nicking, sclerae white, conjunctivae pink. NECK: Carotid 2+. Normal upstroke. JVD flat. Thyroid not palpable. Lymph nodes not palpable. CHEST: Shows increased AP diameter. No kyphosis or scoliosis. LUNGS: Bilateral bronchovesicular breath sounds. HEART: PMI sixth intercostal space with lateral to midclavicular line. S1 irregular. S2, S3, S4, soft systolic murmur. ABDOMEN: Soft. Liver and spleen not palpable. No organomegaly. Bowel sounds active. NEUROLOGIC: The patient is confused. No focal neurologic deficit. EXTREMITIES: Peripheral pulses 2+. No pedal edema. CLINICAL IMPRESSION: Acute renal failure, hyperkalemia, hypercalcemia, hyperphosphatemia, urinary tract infection, [id number] myocardial infarction, hypertension, diabetes mellitus type 2, diabetic chronic kidney disease stage IV, major depression and hyperlipidemia. PLAN: Admit the patient. We will start the patient on anticoagulation. The patient had echocardiogram, which showed hypertrophy of the left ventricle, ejection fraction of 55%, mild mitral regurg, tricuspid regurg, pulmonary regurgitation. We will follow the patient. We will get a BNP level and monitor the patient on telemetry bed. JOB# [id number]
[2017-09-20] MEDS: metroNIDAZOLE 500mg/NS 100mL 500 MG/100 ML BAG IV SCH ×3 (01:26→17:26)
[2017-09-20 05:06] LABS: HEMOGLOBIN 8.2 gm/dL (12-16); MEAN CELL VOLUME 88.4 fl (81-100); MEAN CORPUSCULAR HEMOGLOBIN 30.3 pg (27.0-31.0); MEAN CORPUSCULAR HGB CONC 34.2 pg (28.0-36.0); MEAN PLATELET VOLUME 7.8 fl; RED CELL DISTRIBUTION WIDTH 13.7 % (11.5-20.0); WHITE BLOOD COUNT 9.6 Th/cmm (4.8-10.8)
[2017-09-20 05:12] LABS: HEMATOCRIT 23.9 % (41.0-60); PLATELET COUNT 207 Th/cmm (150-400)
[2017-09-20 05:13] LABS: ANION GAP 10.8 (7.0-16.0); CARBON DIOXIDE 21.5 mEq/L (21.0-31.0); CHLORIDE 115 mEq/L (98-107); CHOLESTEROL 65 mg/dL (<200); CREATININE - SERUM 2.5 mg/dL (0.6-1.2); GLUCOSE 96 mg/dL (70-105); HDL -HIGH DENSITY LIPOPROTEIN 40 mg/dL (23-92); MANUAL DIFF REQUIRED? YES; POTASSIUM SERUM 3.3 mEq/L (3.5-5.1); SODIUM SERUM 144 mEq/L (136-145); TRIGLYCERIDES 22 mg/dL (<150)
[2017-09-20] MEDS: Diltiazem 30 mg Tab PO SCH ×3 (05:41→20:42)
[2017-09-20 05:42] LABS: BUN - UREA NITROGEN 125 mg/dL (7-25)
[2017-09-20] MEDS ORDERED: KCL 20mEq/100mL Premix 20 MEQ/100 ML PIGGYBACK IV ONE ×2 (06:01→06:04)
[2017-09-20 06:14] LABS: TOTAL CELLS COUNTED 100
[2017-09-20 06:15] LABS: LYMPHOCYTE 10 % (20-50); MONOCYTE 1 % (2-10); NEUTROPHILS 89 % (40-80)
[2017-09-20] MEDS: Aspirin 81mg Chewable Tab PO SCH (08:19)
[2017-09-20] MEDS: Levofloxacin 250mg/50mL 250 MG/50 ML BAG IV SCH (08:21)
[2017-09-20] MEDS: D5-0.45NS w/10 mEq KCL 1,000 ML IV SCH ×3 (08:23→21:31)
[2017-09-20] MEDS: INSULIN ASPART SLIDING SCALE 100 UNITS/ML UNIT SUBQ SCH ×4 (08:24→20:47)
[2017-09-20] MEDS: POLYETHYLENE GLYCOL 3350 17 GM PACK PO SCH (09:00)
[2017-09-20] MEDS ORDERED: cefTRIAXone 1 GM in Sodium Chloride 0.9% 50 ML IV SCH (09:00)
[2017-09-20] MEDS ORDERED: Probiotic Screen MC PRN (10:11)
[2017-09-20] MEDS: Rivastigmine 9.5 mg/24 hr Tdm TD SCH (10:30)
[2017-09-20] MEDS: Lactobacillus Rhamnosus GG 15 Billion CFU CAP.SPRINK PO SCH (11:05)
--- NOTE | 2017-09-20 13:25 | General Progress Note ---
Subjective - Review of Systems Service Date: 09/20/17 Subjective: sleeping, arousable Objective - Results Result Diagrams: 09/20/17 04:15 09/20/17 04:15 Recent Labs: Laboratory Last Values WBC 9.6 Th/cmm (4.8-10.8) 09/20/17 04:15 RBC 2.70 Mil/cmm (3.80-5.20) L 09/20/17 04:15 Hgb 8.2 gm/dL (12-16) L 09/20/17 04:15 Hct 23.9 % (41.0-60) L D 09/20/17 04:15 MCV 88.4 fl (81-100) 09/20/17 04:15 MCH 30.3 pg (27.0-31.0) 09/20/17 04:15 MCHC Differential 34.2 pg (28.0-36.0) 09/20/17 04:15 RDW 13.7 % (11.5-20.0) 09/20/17 04:15 Plt Count 207 Th/cmm (150-400) D 09/20/17 04:15 MPV 7.8 fl 09/20/17 04:15 Neutrophils % 94.5 % (40.0-80.0) H 09/17/17 07:05 Band Neutrophils % 1 % (0-10) 09/19/17 04:50 Lymphocytes % 2.7 % (20.0-50.0) L 09/17/17 07:05 Monocytes % 2.2 % (2.0-10.0) 09/17/17 07:05 Eosinophils % 0.3 % (0.0-5.0) 09/17/17 07:05 Basophils % 0.3 % (0.0-2.0) 09/17/17 07:05 Neutrophils (Manual) 89 % (40-80) H 09/20/17 04:15 Lymphocytes 10 % (20-50) L 09/20/17 04:15 Monocytes 1 % (2-10) L 09/20/17 04:15 Eosinophils 1 % (0-5) 09/19/17 04:50 Basophils 0 % (0-3) 09/18/17 04:40 Platelet Estimate ADEQUATE (NORMAL) 09/19/17 04:50 Platelet Morphology NORMAL (NORMAL) 09/18/17 04:40 [place] Cells 1+ 09/19/17 04:50 RBC Morph Micro Appear NORMAL (NORMAL) 09/18/17 04:40 Eos Smear Source URINE 09/17/17 17:40 Eos Smear Total Cells NONE SEEN (NONE SEEN) 09/17/17 17:40 Specimen Source ARTERIAL 09/17/17 01:06 Sample Site Right Radial 09/17/17 01:06 pH 7.39 (7.35-7.45) 09/17/17 01:06 pCO2 22.0 mmHg (35.0-45.0) L* 09/17/17 01:06 pO2 105.0 mmHg (80.0-100.0) H 09/17/17 01:06 HCO3 17.4 mEq/L (20.0-26.0) L 09/17/17 01:06 Base Excess -9.7 mEq/L (-3.0-3.0) L 09/17/17 01:06 O2 Saturation 98.0 % (92.0-100.0) 09/17/17 01:06 Dheeraj Test Positive 09/17/17 01:06 Vent Rate N/A 09/17/17 01:06 Inspired O2 21 09/17/17 01:06 Tidal Volume N/A 09/17/17 01:06 PEEP N/A 09/17/17 01:06 Pressure (ins/psv/peep) N/A 09/17/17 01:06 Critical Value MM,COURT ASSISTANT 09/17/17 01:06 Sodium 144 mEq/L (136-145) 09/20/17 04:15 Potassium 3.3 mEq/L (3.5-5.1) L 09/20/17 04:15 Chloride 115 mEq/L (98-107) H 09/20/17 04:15 Carbon Dioxide 21.5 mEq/L (21.0-31.0) 09/20/17 04:15 Anion Gap 10.8 (7.0-16.0) 09/20/17 04:15 BUN 125 mg/dL (7-25) H* 09/20/17 04:15 Creatinine 2.5 mg/dL (0.6-1.2) H 09/20/17 04:15 Est GFR ( Amer) TNP 09/20/17 04:15 Est GFR (Non-Af Amer) TNP 09/20/17 04:15 BUN/Creatinine Ratio 50.0 09/20/17 04:15 Glucose 96 mg/dL (70-105) 09/20/17 04:15 POC Glucose 157 MG/DL (70 - 105) H 09/18/17 17:12 Hemoglobin A1c % 5.9 % (4.0-6.0) 09/17/17 07:05 Whole Bld Lactic Acid 1.31 mmol/L (0.60-1.99) 09/16/17 22:02 Uric Acid 8.8 mg/dL (2.3-6.6) H 09/18/17 04:40 Calcium 9.0 mg/dL (8.6-10.3) 09/20/17 04:15 Phosphorus 6.7 mg/dL (2.5-5.0) H 09/17/17 07:05 Magnesium 2.0 mg/dL (1.9-2.7) 09/19/17 04:50 Total Bilirubin 0.6 mg/dL (0.3-1.0) 09/19/17 04:50 AST 54 U/L (13-39) H 09/19/17 04:50 ALT 26 U/L (7-52) 09/19/17 04:50 Alkaline Phosphatase 46 U/L (34-104) 09/19/17 04:50 Troponin I 3.62 ng/mL (0.01-0.05) H* D 09/20/17 04:15 B-Natriuretic Peptide 307.0 pg/mL (5.0-100.0) H 09/20/17 04:15 Total Protein 5.7 gm/dL (6.0-8.3) L 09/19/17 04:50 Albumin 3.4 gm/dL (3.7-5.3) L 09/19/17 04:50 Globulin 2.3 gm/dL 09/19/17 04:50 Albumin/Globulin Ratio 1.5 (1.0-1.8) 09/19/17 04:50 Triglycerides 22 mg/dL (<150) 09/20/17 04:15 Cholesterol 65 mg/dL (<200) 09/20/17 04:15 LDL Cholesterol Direct 15 mg/dL (75-193) L 09/20/17 04:15 HDL Cholesterol 40 mg/dL (23-92) 09/20/17 04:15 TSH 0.59 uIU/ml (0.34-5.60) 09/17/17 07:05 Urine Source [place] 09/17/17 02:30 Urine Color YELLOW 09/17/17 02:30 Urine Clarity HAZY (CLEAR) 09/17/17 02:30 Urine pH 8.5 (4.6 - 8.0) 09/17/17 02:30 Ur Specific [place] 1.010 (1.005-1.030) 09/17/17 02:30 Urine Protein 30 mg/dL (NEGATIVE) H 09/17/17 02:30 Urine Glucose (UA) NEGATIVE mg/dL (NEGATIVE) 09/17/17 02:30 Urine Ketones NEGATIVE mg/dL (NEGATIVE) 09/17/17 02:30 Urine Blood SMALL (NEGATIVE) H 09/17/17 02:30 Urine Nitrate NEGATIVE (NEGATIVE) 09/17/17 02:30 Urine Bilirubin NEGATIVE (NEGATIVE) 09/17/17 02:30 Urine Urobilinogen 0.2 E.U./dL (0.2 - 1.0) 09/17/17 02:30 Ur Leukocyte Esterase LARGE (NEGATIVE) H 09/17/17 02:30 Urine RBC 2-5 /hpf (0-5) 09/17/17 02:30 Urine WBC 25-50 /hpf (0-5) H 09/17/17 02:30 Ur Epithelial Cells MODERATE /lpf (FEW) 09/17/17 02:30 Urine Bacteria MANY /hpf (NONE SEEN) H 09/17/17 02:30 Urine Osmolality 426 mOsmol/kg 09/17/17 17:40 U Random Total Protein 39.0 mg/dL 09/18/17 19:00 Ur Random Sodium 33 mmol/L 09/17/17 17:40 Urine Collection Time 24 hours 09/18/17 19:00 Urine Total Volume 900 ml 09/18/17 19:00 Urine Creatinine 65.0 mg/dl (28.0-217.0) 09/17/17 17:40 U Tot Protein 24h, Calc 39.0 mg/24 hr (0-165) 09/18/17 19:00 - Physical Exam Vitals and I&O: Vital Signs Temp 97.5 F 09/20/17 08:00 Pulse 62 09/20/17 11:00 Resp 18 09/20/17 11:00 BP 150/52 09/20/17 11:00 Pulse Ox 100 09/20/17 12:00 Intake & Output 09/19/17 09/20/17 09/20/17 18:59 06:59 18:59 Intake Total 1611 753 2117 Output Total 800 650 Balance 1010 -40 1150 Weight (lbs) 60.963 kg 60.963 kg Intake: Intake, IV Amount 3064 751 3956 D5-0.45NS w/10 mEq KCL 1, 1000 1000 000 ml @ 100 mls/hr IV . Q10H [facility] Rx#:[id number] Levofloxacin 250mg/50mL 50 50 250 mg In 50 ml @ 50 mls/ hr IV Q24H [facility] Rx#: [id number] metroNIDAZOLE 500mg/NS 200 100 100 100mL 500 mg In 100 ml @ 100 mls/hr IV Q8H [facility] Rx# :[id number] Tube Feeding 360 360 Other 150 Output: Urine 800 650 Other: # Bowel Movements 0 Weight Source Bedscale Bedscale Active Medications: Current Medications Acetaminophen (Tylenol) 650 mg PO Q6HR PRN PRN Reason: Pain or Fever >101 Stop: 11/16/17 07:14 Acetaminophen/Hydrocodone Bitart ([place] 5mg/325mg) 1 tab PO Q6H PRN PRN Reason: Pain (Severe) Stop: 11/16/17 07:14 Last Admin: 09/20/17 00:05 Dose: 1 tab Aspirin (Aspirin Chewable) 325 mg PO DAILY [facility] Stop: 11/18/17 06:59 Last Admin: 09/20/17 08:19 Dose: 325 mg Atorvastatin Calcium (Lipitor) 20 mg PO HS [facility]; Protocol Stop: 11/18/17 20:59 Last Admin: 09/19/17 21:06 Dose: 20 mg Bisacodyl (Dulcolax 10 Mg Supp) 10 mg RC DAILY PRN PRN Reason: Constipation Stop: 11/16/17 07:14 Diltiazem HCl (Cardizem) 30 mg PO Q8HR [facility] Stop: 11/17/17 20:59 Last Admin: 09/20/17 05:41 Dose: 30 mg Diltiazem HCl (Cardizem) 5 mg IVP Q3HR PRN PRN Reason: HEART RATE > 110 Stop: 11/17/17 13:51 Docusate Sodium (Colace) 100 mg PO DAILY [facility] Stop: 11/16/17 08:59 Last Admin: 09/20/17 08:17 Dose: 100 mg Heparin Sodium (Porcine) (Heparin) 5,000 units SUBQ Q12H [facility] Stop: 11/16/17 20:59 Last Admin: 09/20/17 08:22 Dose: 5,000 units Hydralazine HCl (Apresoline 20 Mg/Ml) 10 mg IV Q6HR PRN PRN Reason: htn sbp >165 Stop: 11/16/17 07:18 Last Admin: 09/18/17 08:18 Dose: 10 mg Metronidazole (Flagyl) 500 mg in 100 mls @ 100 mls/hr IV Q8H [facility] Stop: 11/16/17 08:59 Last Infusion: 09/20/17 11:20 Dose: Infused Levofloxacin (Levaquin Pb) 250 mg in 50 mls @ 50 mls/hr IV Q24H [facility] Stop: 11/17/17 08:59 Last Infusion: 09/20/17 09:55 Dose: Infused Potassium Chloride/Dextrose/Sod Cl (D5-0.45ns W/10 Meq Kcl) 1,000 mls @ 100 mls /hr IV .Q10H [facility] Stop: 11/18/17 09:59 Last Admin: 09/20/17 08:23 Dose: 100 mls/hr Ceftriaxone Sodium 1 gm/ (Dextrose) 50 mls @ 100 mls/hr IV Q24H [facility] Stop: 11/19/17 08:59 Last Admin: 09/20/17 10:30 Dose: 100 mls/hr Insulin Aspart (Novolog Insulin Sliding Scale) 0 units SUBQ ACHS [facility]; Protocol Stop: 11/16/17 07:29 Last Admin: 09/20/17 12:15 Dose: Not Given Insulin Detemir (Levemir Insulin) 6 units SUBQ HS [facility]; Protocol Stop: 11/16/17 20:59 Last Admin: 09/19/17 21:07 Dose: 6 units Isosorbide Mononitrate (Imdur) 60 mg PO BID [facility] Stop: 11/16/17 08:59 Last Admin: 09/20/17 08:20 Dose: 60 mg Lactobacillus Rhamnosus (Culturelle 15b) 1 each PO DAILY [facility] Stop: 11/19/17 10:59 Last Admin: 09/20/17 11:05 Dose: 1 each Lorazepam (Ativan) 0.5 mg IVP Q4HR PRN; Protocol PRN Reason: Agitation Stop: 11/16/17 09:19 Last Admin: 09/19/17 04:37 Dose: 0.5 mg Magnesium Hydroxide (Milk Of Magnesia) 30 ml PO HS PRN PRN Reason: Constipation Stop: 11/16/17 07:14 Megestrol Acetate (Megace) 400 mg PO BID [facility] Stop: 11/16/17 08:59 Last Admin: 09/20/17 08:17 Dose: 400 mg Metoprolol Tartrate (Lopressor) 25 mg PO BID [facility] Stop: 11/16/17 08:59 Last Admin: 09/20/17 08:21 Dose: 25 mg Miscellaneous (Clinical Monitoring) 1 ea MC DAILY PRN PRN Reason: RENAL DOSING Stop: 11/16/17 08:05 Miscellaneous (Vte Chemical Prophylaxis Screen/ Admission) 1 ea MC PRN PRN PRN Reason: PROTOCOL Stop: 11/16/17 14:17 Miscellaneous (Probiotic Screen) 1 ea PRN PRN PRN Reason: PROTOCOL Stop: 11/19/17 10:10 Pantoprazole Sodium (Protonix) 40 mg IVP DAILY [facility] Stop: 11/16/17 11:29 Last Admin: 09/20/17 08:16 Dose: 40 mg Polyethylene Glycol (Miralax) 17 gm PO DAILY [facility] Stop: 11/16/17 08:59 Last Admin: 09/20/17 09:00 Dose: 17 gm Rivastigmine ([place] 9.5 Mg/24 Hr Tdm) 1 patch TD DAILY [facility] Stop: 11/16/17 08:59 Last Admin: 09/20/17 10:30 Dose: 1 patch Sodium Bicarbonate (Sodium Bicarbonate) 650 mg PO TID [facility]; Protocol Stop: 11/18/17 08:59 Last Admin: 09/20/17 09:00 Dose: 650 mg General: No acute distress HEENT: Atraumatic, Mucous membr. moist/pink Neck: Supple, +2 carotid pulse wo bruit Cardiovascular: Other (irregular) Lungs: Clear to auscultation Abdomen: Bowel sounds, Soft Extremities: no Edema Neurological: Sensation intact Skin: no Rash Psych/Mental Status: Mood NL Assessment/Plan - Assessment Assessment: ARF Hyperkalemia Cx Proteus UTI FTT Fecal impaction T2DM Dementia w/ behavioural disturbance Chronic A. fib NSTE OR - Plan Plan: Lab - Result Diagrams 09/18/17 04:40 09/18/17 04:40 Current Medications Acetaminophen (Tylenol) 650 mg PO Q6HR PRN PRN Reason: Pain or Fever >101 Stop: 11/16/17 07:14 Acetaminophen/Hydrocodone Bitart ([place] 5mg/325mg) 1 tab PO Q6H PRN PRN Reason: Pain (Severe) Stop: 11/16/17 07:14 Last Admin: 09/17/17 23:43 Dose: 1 tab Aspirin (Aspirin Chewable) 81 mg PO DAILY [facility] Stop: 11/16/17 08:59 Last Admin: 09/18/17 08:22 Dose: 81 mg Bisacodyl (Dulcolax 10 Mg Supp) 10 mg RC DAILY PRN PRN Reason: Constipation Stop: 11/16/17 07:14 Docusate Sodium (Colace) 100 mg PO DAILY [facility] Stop: 11/16/17 08:59 Last Admin: 09/18/17 08:22 Dose: 100 mg Heparin Sodium (Porcine) (Heparin) 5,000 units SUBQ Q12H [facility] Stop: 11/16/17 20:59 Last Admin: 09/18/17 08:22 Dose: 5,000 units Hydralazine HCl (Apresoline 20 Mg/Ml) 10 mg IV Q6HR PRN PRN Reason: htn sbp >165 Stop: 11/16/17 07:18 Last Admin: 09/18/17 08:18 Dose: 10 mg Metronidazole (Flagyl) 500 mg in 100 mls @ 100 mls/hr IV Q8H [facility] Stop: 11/16/17 08:59 Last Infusion: 09/18/17 10:03 Dose: Infused Levofloxacin (Levaquin Pb) 250 mg in 50 mls @ 50 mls/hr IV Q24H [facility] Stop: 11/17/17 08:59 Last Infusion: 09/18/17 09:25 Dose: Infused Dextrose/Sodium Chloride (D5-0.45ns) 1,000 mls @ 125 mls/hr IV .Q8H [facility] Stop: 11/16/17 14:44 Last Admin: 09/18/17 06:48 Dose: 125 mls/hr Potassium Chloride (Potassium Chloride) 40 meq in 200 mls @ 50 mls/hr IV 0730 [facility] Stop: 09/19/17 11:29 Last Admin: 09/18/17 08:52 Dose: 50 mls/hr Insulin Aspart (Novolog Insulin Sliding Scale) 0 units SUBQ ACHS [facility]; Protocol Stop: 11/16/17 07:29 Last Admin: 09/18/17 12:45 Dose: Not Given Insulin Detemir (Levemir Insulin) 6 units SUBQ HS [facility]; Protocol Stop: 11/16/17 20:59 Last Admin: 09/17/17 20:35 Dose: 6 units Isosorbide Mononitrate (Imdur) 60 mg PO BID [facility] Stop: 11/16/17 08:59 Last Admin: 09/18/17 08:21 Dose: 60 mg Lorazepam (Ativan) 0.5 mg IVP Q4HR PRN; Protocol PRN Reason: Agitation Stop: 11/16/17 09:19 Last Admin: 09/18/17 08:59 Dose: 0.5 mg Magnesium Hydroxide (Milk Of Magnesia) 30 ml PO HS PRN PRN Reason: Constipation Stop: 11/16/17 07:14 Megestrol Acetate (Megace) 400 mg PO BID [facility] Stop: 11/16/17 08:59 Last Admin: 09/18/17 08:21 Dose: 400 mg Metoprolol Tartrate (Lopressor) 25 mg PO BID [facility] Stop: 11/16/17 08:59 Last Admin: 09/18/17 08:22 Dose: 25 mg Miscellaneous (Clinical Monitoring) 1 ea MC DAILY PRN PRN Reason: RENAL DOSING Stop: 11/16/17 08:05 Miscellaneous (Vte Chemical Prophylaxis Screen/ Admission) 1 ea MC PRN PRN PRN Reason: PROTOCOL Stop: 11/16/17 14:17 Miscellaneous (Misc Injection) 1 vial IVP Q3HR PRN PRN Reason: HEART RATE > 110 BPM Stop: 11/17/17 12:53 Pantoprazole Sodium (Protonix) 40 mg IVP DAILY [facility] Stop: 11/16/17 11:29 Last Admin: 09/18/17 08:21 Dose: 40 mg Polyethylene Glycol (Miralax) 17 gm PO DAILY [facility] Stop: 11/16/17 08:59 Last Admin: 09/18/17 09:51 Dose: Not Given Rivastigmine (Ex[place] 9.5 Mg/24 Hr Tdm) 1 patch TD DAILY [facility] Stop: 11/16/17 08:59 Last Admin: 09/18/17 10:00 Dose: 1 pat Lab - Result Diagrams 09/20/17 04:15 09/20/17 04:15 kidney fnc improved w/ BUN/CR of 125/2.5 now nonoliguric replace K, MG start Cardizem for A. fib w/ RVR Echo LVH, EJF 55% continue hydration elevated Troponin on ASA, metoprolol Nutritional Asmnt/Malnutr-PDOC - Dietary Evaluation Malnutrition Findings (Please click <Entered> for more info): Nutritional Asmnt/Malnutrition Start: 09/17/17 14: 32 Text: Status: Complete Freq: Protocol: Document 09/17/17 14:35 TONY (Rec: 09/17/17 15:03 [email or web address] [email or web address]) Nutritional Asmnt/Malnutrition Patient General Information Nutritional Screening High Risk Consult Diagnosis hyperkalemia, renal failure, dehydration Pertinent Medical Hx/Surgical Hx HTN, DM, UTI, major depression , anemia, hypercholesterolemia , vit D deficiency, CHF, dyslipidemia, arthritis, dementia, CHF, depression, dementia Subjective Information Consult received for Negrito Nils . Pt seen lying in bed at time of visit. Pt has NGT noted. Current Diet Order/ Nutrition Support NPO Pertinent Medications D5-0.45ns, colace, novolog, levemir, levaquin, megace, protonix, miralax Pertinent Labs 09/17 K 5.9, cl 110, BUN 210, Cr 4.6, glucose 197, POC 146-225 , Ca 11.1, K 6.7 09/16 K 6.4, Cl 108, BUN 223, Cr 4.8, glucose 116, Ca 11.5 Nutritional Hx/Data Height 1.7 m Height (Calculated Centimeters) 170.2 Current Weight (lbs) 53.07 kg Weight (Calculated Kilograms) 53.1 Weight (Calculated Grams) 63436.3 [place] Body Weight 135 % [place] Body Weight 86 Body Mass Index (BMI) 18.3 Weight Status Underweight GI Symptoms GI Symptoms None Last BM 09/17 x 4 Difficult in: None Usual diet at home soft NCS [place] at care facility per chart Skin Integrity/Comment: pressure area reddended to right/left foot Estimated Nutritional Goals BEE in Kcals: Using Current wt Calories/Kcals/Kg 27-32 Kcals Calculated 2416-4693 Protein: Using Current wt Protein g/kg: per MD Protein Calculated per MD Fluid: ml Per MD Nutritional Problem 1. Problem Problem altered nutrition related labs Etiology electrolytes/fluid imbalance, renal failure, hx of DM Signs/Symptoms: K 5.9, cl 110, BUN 210, Cr 4.6 , glucose 197, POC 146-225, Ca 11.1, K 6.7 Malnutrition Alert Is there a minimum of two criteria No selected? Query Text:Check all the applicable criteria. A minimum of two criteria are recommended for diagnosis of either severe or non-severe malnutrition. Malnutrition Related to Morbid Obesity Malnutrition related to morbid obesity No Intervention/Recommendation Comments 1. Monitor NPO status. 2. Monitor wt, labs and skin integrity 3. F/U as high risk in 2-3 days, 09/19-09/20 Expected Outcomes/Goals Expected Outcomes/Goals 1. PO intake to meet at least 75% of nutritional needs. 2. Wt stability, skin to remain intact, labs to approach WNL.
[2017-09-20] MEDS: Atorvastatin Calcium 10 MG TAB PO SCH (20:43)
[2017-09-20] MEDS: Insulin Detemir 100 units/mL 10mL Vial SUBQ SCH (20:47)
[2017-09-21] MEDS: metroNIDAZOLE 500mg/NS 100mL 500 MG/100 ML BAG IV SCH ×3 (00:33→16:26)
[2017-09-21 04:48] LABS: % EOSINOPHILS 0.6 % (0.0-5.0); % MONOCYTES 4.7 % (2.0-10.0); ALB/GLOB RATIO 1.4 (1.0-1.8); ALBUMIN 3.2 gm/dL (3.7-5.3); ALKALINE PHOSPHATASE 56 U/L (34-104); ANION GAP 11.2 (7.0-16.0); BILIRUBIN,TOTAL 0.7 mg/dL (0.3-1.0); CALCIUM SERUM 9.3 mg/dL (8.6-10.3); CARBON DIOXIDE 22.3 mEq/L (21.0-31.0); CHLORIDE 114 mEq/L (98-107); CREATININE - SERUM 2.3 mg/dL (0.6-1.2); EOSINOPHILE ABSOLUTE 0.1 Th/cmm (0.1-0.4); GLUCOSE 99 mg/dL (70-105); HEMOGLOBIN 10.3 gm/dL (12-16); LYMPHOCYTE ABSOLUTE 1.1 Th/cmm (1.5-3.0); MAGNESIUM 1.7 mg/dL (1.9-2.7); MEAN CORPUSCULAR HGB CONC 33.6 pg (28.0-36.0); MONOCYTE ABSOLUTE 0.5 Th/cmm (0.3-1.0); POTASSIUM SERUM 4.5 mEq/L (3.5-5.1); SGOT 27 U/L (13-39); SGPT/ALT 19 U/L (7-52); SODIUM SERUM 143 mEq/L (136-145); TOTAL PROTEIN,SERUM 5.5 gm/dL (6.0-8.3)
[2017-09-21 04:52] LABS: % BASOPHILS 0.1 % (0.0-2.0); % LYMPHOCYTES 10.8 % (20.0-50.0); % NEUTROPHILS 83.8 % (40.0-80.0); MEAN CELL VOLUME 87.4 fl (81-100); MEAN CORPUSCULAR HEMOGLOBIN 29.4 pg (27.0-31.0); MEAN PLATELET VOLUME 7.9 fl; NEUTROPHILE ABSOLUTE 8.6 Th/cmm (1.8-8.0); PLATELET COUNT 222 Th/cmm (150-400); WHITE BLOOD COUNT 10.3 Th/cmm (4.8-10.8)
[2017-09-21 05:01] LABS: HEMATOCRIT 30.6 % (41.0-60)
[2017-09-21 05:08] LABS: BUN - UREA NITROGEN 102 mg/dL (7-25)
[2017-09-21] MEDS: Diltiazem 30 mg Tab PO SCH ×3 (05:17→21:07)
[2017-09-21 05:47] LABS: HEMOGLOBIN 8.3 gm/dL (12-16)
[2017-09-21] MEDS: INSULIN ASPART SLIDING SCALE 100 UNITS/ML UNIT SUBQ SCH ×4 (06:40→21:06)
[2017-09-21] MEDS: D5-0.45NS w/10 mEq KCL 1,000 ML IV SCH ×2 (06:41→12:28)
[2017-09-21] MEDS: Hydrocodone/APAP 5mg/325mg Tab PO PRN (07:29)
[2017-09-21] MEDS: POLYETHYLENE GLYCOL 3350 17 GM PACK PO SCH (08:05)
[2017-09-21] MEDS: Aspirin 81mg Chewable Tab PO SCH (08:07)
[2017-09-21] MEDS: Lactobacillus Rhamnosus GG 15 Billion CFU CAP.SPRINK PO SCH (08:07)
[2017-09-21] MEDS: Rivastigmine 9.5 mg/24 hr Tdm TD SCH (08:32)
[2017-09-21] MEDS: Levofloxacin 250mg/50mL 250 MG/50 ML BAG IV SCH (09:49)
--- NOTE | 2017-09-21 11:12 | General Progress Note ---
Subjective - Review of Systems Service Date: 09/21/17 Subjective: more awake, nonverbal Objective - Results Result Diagrams: 09/21/17 04:15 09/21/17 04:15 Recent Labs: Laboratory Last Values WBC 10.3 Th/cmm (4.8-10.8) 09/21/17 04:15 RBC 3.50 Mil/cmm (3.80-5.20) L 09/21/17 04:15 Hgb 10.3 gm/dL (12-16) L 09/21/17 04:15 Hct 30.6 % (41.0-60) L D 09/21/17 04:15 MCV 87.4 fl (81-100) 09/21/17 04:15 MCH 29.4 pg (27.0-31.0) 09/21/17 04:15 MCHC Differential 33.6 pg (28.0-36.0) 09/21/17 04:15 RDW 14.0 % (11.5-20.0) 09/21/17 04:15 Plt Count 222 Th/cmm (150-400) 09/21/17 04:15 MPV 7.9 fl 09/21/17 04:15 Neutrophils % 83.8 % (40.0-80.0) H 09/21/17 04:15 Band Neutrophils % 1 % (0-10) 09/19/17 04:50 Lymphocytes % 10.8 % (20.0-50.0) L 09/21/17 04:15 Monocytes % 4.7 % (2.0-10.0) 09/21/17 04:15 Eosinophils % 0.6 % (0.0-5.0) 09/21/17 04:15 Basophils % 0.1 % (0.0-2.0) 09/21/17 04:15 Neutrophils (Manual) 89 % (40-80) H 09/20/17 04:15 Lymphocytes 10 % (20-50) L 09/20/17 04:15 Monocytes 1 % (2-10) L 09/20/17 04:15 Eosinophils 1 % (0-5) 09/19/17 04:50 Basophils 0 % (0-3) 09/18/17 04:40 Platelet Estimate ADEQUATE (NORMAL) 09/19/17 04:50 Platelet Morphology NORMAL (NORMAL) 09/18/17 04:40 [place] Cells 1+ 09/19/17 04:50 RBC Morph Micro Appear NORMAL (NORMAL) 09/18/17 04:40 Eos Smear Source URINE 09/17/17 17:40 Eos Smear Total Cells NONE SEEN (NONE SEEN) 09/17/17 17:40 Specimen Source ARTERIAL 09/17/17 01:06 Sample Site Right Radial 09/17/17 01:06 pH 7.39 (7.35-7.45) 09/17/17 01:06 pCO2 22.0 mmHg (35.0-45.0) L* 09/17/17 01:06 pO2 105.0 mmHg (80.0-100.0) H 09/17/17 01:06 HCO3 17.4 mEq/L (20.0-26.0) L 09/17/17 01:06 Base Excess -9.7 mEq/L (-3.0-3.0) L 09/17/17 01:06 O2 Saturation 98.0 % (92.0-100.0) 09/17/17 01:06 Dheeraj Test Positive 09/17/17 01:06 Vent Rate N/A 09/17/17 01:06 Inspired O2 21 09/17/17 01:06 Tidal Volume N/A 09/17/17 01:06 PEEP N/A 09/17/17 01:06 Pressure (ins/psv/peep) N/A 09/17/17 01:06 Critical Value MM,OCEANOLOGY TEACHER 09/17/17 01:06 Sodium 143 mEq/L (136-145) 09/21/17 04:15 Potassium 4.5 mEq/L (3.5-5.1) 09/21/17 04:15 Chloride 114 mEq/L (98-107) H 09/21/17 04:15 Carbon Dioxide 22.3 mEq/L (21.0-31.0) 09/21/17 04:15 Anion Gap 11.2 (7.0-16.0) 09/21/17 04:15 BUN 102 mg/dL (7-25) H* 09/21/17 04:15 Creatinine 2.3 mg/dL (0.6-1.2) H 09/21/17 04:15 Est GFR ( Amer) TNP 09/21/17 04:15 Est GFR (Non-Af Amer) TNP 09/21/17 04:15 BUN/Creatinine Ratio 44.3 09/21/17 04:15 Glucose 99 mg/dL (70-105) 09/21/17 04:15 POC Glucose 157 MG/DL (70 - 105) H 09/18/17 17:12 Hemoglobin A1c % 5.9 % (4.0-6.0) 09/17/17 07:05 Whole Bld Lactic Acid 1.31 mmol/L (0.60-1.99) 09/16/17 22:02 Uric Acid 8.8 mg/dL (2.3-6.6) H 09/18/17 04:40 Calcium 9.3 mg/dL (8.6-10.3) 09/21/17 04:15 Phosphorus 6.7 mg/dL (2.5-5.0) H 09/17/17 07:05 Magnesium 1.7 mg/dL (1.9-2.7) L 09/21/17 04:15 Total Bilirubin 0.7 mg/dL (0.3-1.0) 09/21/17 04:15 AST 27 U/L (13-39) 09/21/17 04:15 ALT 19 U/L (7-52) 09/21/17 04:15 Alkaline Phosphatase 56 U/L (34-104) 09/21/17 04:15 Troponin I 2.89 ng/mL (0.01-0.05) H* D 09/21/17 04:15 B-Natriuretic Peptide 307.0 pg/mL (5.0-100.0) H 09/20/17 04:15 Total Protein 5.5 gm/dL (6.0-8.3) L 09/21/17 04:15 Albumin 3.2 gm/dL (3.7-5.3) L 09/21/17 04:15 Globulin 2.3 gm/dL 09/21/17 04:15 Albumin/Globulin Ratio 1.4 (1.0-1.8) 09/21/17 04:15 Triglycerides 22 mg/dL (<150) 09/20/17 04:15 Cholesterol 65 mg/dL (<200) 09/20/17 04:15 LDL Cholesterol Direct 15 mg/dL (75-193) L 09/20/17 04:15 HDL Cholesterol 40 mg/dL (23-92) 09/20/17 04:15 TSH 0.59 uIU/ml (0.34-5.60) 09/17/17 07:05 Urine Source [place] 09/17/17 02:30 Urine Color YELLOW 09/17/17 02:30 Urine Clarity HAZY (CLEAR) 09/17/17 02:30 Urine pH 8.5 (4.6 - 8.0) 09/17/17 02:30 Ur Specific [place] 1.010 (1.005-1.030) 09/17/17 02:30 Urine Protein 30 mg/dL (NEGATIVE) H 09/17/17 02:30 Urine Glucose (UA) NEGATIVE mg/dL (NEGATIVE) 09/17/17 02:30 Urine Ketones NEGATIVE mg/dL (NEGATIVE) 09/17/17 02:30 Urine Blood SMALL (NEGATIVE) H 09/17/17 02:30 Urine Nitrate NEGATIVE (NEGATIVE) 09/17/17 02:30 Urine Bilirubin NEGATIVE (NEGATIVE) 09/17/17 02:30 Urine Urobilinogen 0.2 E.U./dL (0.2 - 1.0) 09/17/17 02:30 Ur Leukocyte Esterase LARGE (NEGATIVE) H 09/17/17 02:30 Urine RBC 2-5 /hpf (0-5) 09/17/17 02:30 Urine WBC 25-50 /hpf (0-5) H 09/17/17 02:30 Ur Epithelial Cells MODERATE /lpf (FEW) 09/17/17 02:30 Urine Bacteria MANY /hpf (NONE SEEN) H 09/17/17 02:30 Urine Osmolality 426 mOsmol/kg 09/17/17 17:40 U Random Total Protein 39.0 mg/dL 09/18/17 19:00 Ur Random Sodium 33 mmol/L 09/17/17 17:40 Urine Collection Time 24 hours 09/18/17 19:00 Urine Total Volume 900 ml 09/18/17 19:00 Urine Creatinine 65.0 mg/dl (28.0-217.0) 09/17/17 17:40 U Tot Protein 24h, Calc 39.0 mg/24 hr (0-165) 09/18/17 19:00 Blood Type O POSITIVE 09/20/17 22:13 Antibody Screen NEGATIVE 09/20/17 22:13 Crossmatch See Detail 09/20/17 22:13 - Physical Exam Vitals and I&O: Vital Signs Temp 98 F 09/21/17 04:00 Pulse 63 09/21/17 08:06 Resp 12 09/21/17 07:00 BP 137/43 09/21/17 08:06 Pulse Ox 100 09/21/17 07:00 Intake & Output 09/20/17 09/21/17 09/21/17 18:59 06:59 18:59 Intake Total 2766.667 2033.334 100 Output Total 950 750 Balance 3305.328 2977.334 100 Weight (lbs) 62.823 kg 63.503 kg Intake: Intake, IV Amount 2206.667 1423.334 100 D5-0.45NS w/10 mEq KCL 1, 0534.291 2206.334 000 ml @ 100 mls/hr IV . Q10H [facility] Rx#:[id number] Levofloxacin 250mg/50mL 50 250 mg In 50 ml @ 50 mls/ hr IV Q24H [facility] Rx#: [id number] cefTRIAXone 1 gm In 50 Dextrose 5% 50 ml @ 100 mls/hr IV Q24H [facility] Rx#: [id number] metroNIDAZOLE 500mg/NS 200 100 100 100mL 500 mg In 100 ml @ 100 mls/hr IV Q8H [facility] Rx# :[id number] Tube Feeding 360 Blood Product 250 Other 560 Output: Urine 950 750 Other: Weight Source Bedscale Patient stated Active Medications: Current Medications Acetaminophen (Tylenol) 650 mg PO Q6HR PRN PRN Reason: Pain or Fever >101 Stop: 11/16/17 07:14 Acetaminophen/Hydrocodone Bitart ([place] 5mg/325mg) 1 tab PO Q6H PRN PRN Reason: Pain (Severe) Stop: 11/16/17 07:14 Last Admin: 09/21/17 07:29 Dose: 1 tab Aspirin (Aspirin Chewable) 325 mg PO DAILY [facility] Stop: 11/18/17 06:59 Last Admin: 09/21/17 08:07 Dose: 325 mg Atorvastatin Calcium (Lipitor) 20 mg PO HS [facility]; Protocol Stop: 11/18/17 20:59 Last Admin: 09/20/17 20:43 Dose: 20 mg Bisacodyl (Dulcolax 10 Mg Supp) 10 mg RC DAILY PRN PRN Reason: Constipation Stop: 11/16/17 07:14 Diltiazem HCl (Cardizem) 30 mg PO Q8HR [facility] Stop: 11/17/17 20:59 Last Admin: 09/21/17 05:17 Dose: 30 mg Diltiazem HCl (Cardizem) 5 mg IVP Q3HR PRN PRN Reason: HEART RATE > 110 Stop: 11/17/17 13:51 Docusate Sodium (Colace) 100 mg PO DAILY [facility] Stop: 11/16/17 08:59 Last Admin: 09/21/17 08:07 Dose: 100 mg Heparin Sodium (Porcine) (Heparin) 5,000 units SUBQ Q12H [facility] Stop: 11/16/17 20:59 Last Admin: 09/21/17 08:07 Dose: 5,000 units Hydralazine HCl (Apresoline 20 Mg/Ml) 10 mg IV Q6HR PRN PRN Reason: htn sbp >165 Stop: 11/16/17 07:18 Last Admin: 09/21/17 04:41 Dose: 10 mg Metronidazole (Flagyl) 500 mg in 100 mls @ 100 mls/hr IV Q8H [facility] Stop: 11/16/17 08:59 Last Infusion: 09/21/17 09:10 Dose: Infused Levofloxacin (Levaquin Pb) 250 mg in 50 mls @ 50 mls/hr IV Q24H [facility] Stop: 11/17/17 08:59 Last Admin: 09/21/17 09:49 Dose: 100 mls/hr Potassium Chloride/Dextrose/Sod Cl (D5-0.45ns W/10 Meq Kcl) 1,000 mls @ 100 mls /hr IV .Q10H [facility] Stop: 11/18/17 09:59 Last Admin: 09/21/17 06:41 Dose: 100 mls/hr Ceftriaxone Sodium 1 gm/ (Dextrose) 50 mls @ 100 mls/hr IV Q24H [facility] Stop: 11/19/17 08:59 Last Infusion: 09/20/17 11:00 Dose: Infused Insulin Aspart (Novolog Insulin Sliding Scale) 0 units SUBQ ACHS [facility]; Protocol Stop: 11/16/17 07:29 Last Admin: 09/21/17 06:40 Dose: Not Given Insulin Detemir (Levemir Insulin) 6 units SUBQ HS [facility]; Protocol Stop: 11/16/17 20:59 Last Admin: 09/20/17 20:47 Dose: 6 units Isosorbide Mononitrate (Imdur) 60 mg PO BID [facility] Stop: 11/16/17 08:59 Last Admin: 09/21/17 08:06 Dose: 60 mg Lactobacillus Rhamnosus (Culturelle 15b) 1 each PO DAILY [facility] Stop: 11/19/17 10:59 Last Admin: 09/21/17 08:07 Dose: 1 each Lorazepam (Ativan) 0.5 mg IVP Q4HR PRN; Protocol PRN Reason: Agitation Stop: 11/16/17 09:19 Last Admin: 09/19/17 04:37 Dose: 0.5 mg Magnesium Hydroxide (Milk Of Magnesia) 30 ml PO HS PRN PRN Reason: Constipation Stop: 11/16/17 07:14 Megestrol Acetate (Megace) 400 mg PO BID [facility] Stop: 11/16/17 08:59 Last Admin: 09/21/17 08:05 Dose: 400 mg Metoprolol Tartrate (Lopressor) 25 mg PO BID [facility] Stop: 11/16/17 08:59 Last Admin: 09/21/17 08:06 Dose: 25 mg Miscellaneous (Clinical Monitoring) 1 ea MC DAILY PRN PRN Reason: RENAL DOSING Stop: 11/16/17 08:05 Miscellaneous (Vte Chemical Prophylaxis Screen/ Admission) 1 ea PRN PRN PRN Reason: PROTOCOL Stop: 11/16/17 14:17 Miscellaneous (Probiotic Screen) 1 ea PRN PRN PRN Reason: PROTOCOL Stop: 11/19/17 10:10 Pantoprazole Sodium (Protonix) 40 mg IVP DAILY [facility] Stop: 11/16/17 11:29 Last Admin: 09/21/17 09:50 Dose: 40 mg Polyethylene Glycol (Miralax) 17 gm PO DAILY [facility] Stop: 11/16/17 08:59 Last Admin: 09/21/17 08:05 Dose: 17 gm Rivastigmine (Exelon 9.5 Mg/24 Hr Tdm) 1 patch TD DAILY [facility] Stop: 11/16/17 08:59 Last Admin: 09/21/17 08:32 Dose: 1 patch Sodium Bicarbonate (Sodium Bicarbonate) 650 mg PO TID [facility]; Protocol Stop: 11/18/17 08:59 Last Admin: 09/21/17 08:05 Dose: 650 mg General: Alert, No acute distress HEENT: Atraumatic, Mucous membr. moist/pink Neck: Supple, +2 carotid pulse wo bruit Cardiovascular: Other (irregular) Lungs: Clear to auscultation Abdomen: Bowel sounds, Soft Extremities: no Edema Neurological: Sensation intact Skin: no Rash Psych/Mental Status: Mood NL Assessment/Plan - Assessment Assessment: ARF Hyperkalemia Cx Proteus UTI FTT Fecal impaction T2DM Dementia w/ behavioural disturbance Chronic A. fib NSTE [place] - Plan Plan: Lab - Result Diagrams 09/18/17 04:40 09/18/17 04:40 Current Medications Acetaminophen (Tylenol) 650 mg PO Q6HR PRN PRN Reason: Pain or Fever >101 Stop: 11/16/17 07:14 Acetaminophen/Hydrocodone Bitart ([place] 5mg/325mg) 1 tab PO Q6H PRN PRN Reason: Pain (Severe) Stop: 11/16/17 07:14 Last Admin: 09/17/17 23:43 Dose: 1 tab Aspirin (Aspirin Chewable) 81 mg PO DAILY [facility] Stop: 11/16/17 08:59 Last Admin: 09/18/17 08:22 Dose: 81 mg Bisacodyl (Dulcolax 10 Mg Supp) 10 mg RC DAILY PRN PRN Reason: Constipation Stop: 11/16/17 07:14 Docusate Sodium (Colace) 100 mg PO DAILY [facility] Stop: 11/16/17 08:59 Last Admin: 09/18/17 08:22 Dose: 100 mg Heparin Sodium (Porcine) (Heparin) 5,000 units SUBQ Q12H [facility] Stop: 11/16/17 20:59 Last Admin: 09/18/17 08:22 Dose: 5,000 units Hydralazine HCl (Apresoline 20 Mg/Ml) 10 mg IV Q6HR PRN PRN Reason: htn sbp >165 Stop: 11/16/17 07:18 Last Admin: 09/18/17 08:18 Dose: 10 mg Metronidazole (Flagyl) 500 mg in 100 mls @ 100 mls/hr IV Q8H [facility] Stop: 11/16/17 08:59 Last Infusion: 09/18/17 10:03 Dose: Infused Levofloxacin (Levaquin Pb) 250 mg in 50 mls @ 50 mls/hr IV Q24H [facility] Stop: 11/17/17 08:59 Last Infusion: 09/18/17 09:25 Dose: Infused Dextrose/Sodium Chloride (D5-0.45ns) 1,000 mls @ 125 mls/hr IV .Q8H [facility] Stop: 11/16/17 14:44 Last Admin: 09/18/17 06:48 Dose: 125 mls/hr Potassium Chloride (Potassium Chloride) 40 meq in 200 mls @ 50 mls/hr IV 0730 [facility] Stop: 09/19/17 11:29 Last Admin: 09/18/17 08:52 Dose: 50 mls/hr Insulin Aspart (Novolog Insulin Sliding Scale) 0 units SUBQ [facility]; Protocol Stop: 11/16/17 07:29 Last Admin: 09/18/17 12:45 Dose: Not Given Insulin Detemir (Levemir Insulin) 6 units SUBQ [facility]; Protocol Stop: 11/16/17 20:59 Last Admin: 09/17/17 20:35 Dose: 6 units Isosorbide Mononitrate (Imdur) 60 mg PO BID [facility] Stop: 11/16/17 08:59 Last Admin: 09/18/17 08:21 Dose: 60 mg Lorazepam (Ativan) 0.5 mg IVP Q4HR PRN; Protocol PRN Reason: Agitation Stop: 11/16/17 09:19 Last Admin: 09/18/17 08:59 Dose: 0.5 mg Magnesium Hydroxide (Milk Of Magnesia) 30 ml PO HS PRN PRN Reason: Constipation Stop: 11/16/17 07:14 Megestrol Acetate (Megace) 400 mg PO BID [facility] Stop: 11/16/17 08:59 Last Admin: 09/18/17 08:21 Dose: 400 mg Metoprolol Tartrate (Lopressor) 25 mg PO BID [facility] Stop: 11/16/17 08:59 Last Admin: 09/18/17 08:22 Dose: 25 mg Miscellaneous (Clinical Monitoring) 1 ea MC DAILY PRN PRN Reason: RENAL DOSING Stop: 11/16/17 08:05 Miscellaneous (Vte Chemical Prophylaxis Screen/ Admission) 1 ea MC PRN PRN PRN Reason: PROTOCOL Stop: 11/16/17 14:17 Miscellaneous (Misc Injection) 1 vial IVP Q3HR PRN PRN Reason: HEART RATE > 110 BPM Stop: 11/17/17 12:53 Pantoprazole Sodium (Protonix) 40 mg IVP DAILY [facility] Stop: 11/16/17 11:29 Last Admin: 09/18/17 08:21 Dose: 40 mg Polyethylene Glycol (Miralax) 17 gm PO DAILY [facility] Stop: 11/16/17 08:59 Last Admin: 09/18/17 09:51 Dose: Not Given Rivastigmine (Exelon 9.5 Mg/24 Hr Tdm) 1 patch TD DAILY [facility] Stop: 11/16/17 08:59 Last Admin: 09/18/17 10:00 Dose: 1 pat Lab - Result Diagrams 09/21/17 04:15 09/21/17 04:15 kidney fnc improved w/ BUN/CR of 102/2.3 now nonoliguric replace K, MG start Cardizem for A. fib Echo LVH, EJF 55% continue hydration elevated Troponin on ASA, metoprolol Nutritional Asmnt/Malnutr-PDOC - Dietary Evaluation Malnutrition Findings (Please click <Entered> for more info): Nutritional Asmnt/Malnutrition Start: 09/17/17 14: 32 Text: Status: Complete Freq: Protocol: Document 09/17/17 14:35 LCKRISTING (Rec: 09/17/17 15:03 LCRHONDA [email or web address]) Nutritional Asmnt/Malnutrition Patient General Information Nutritional Screening High Risk Consult Diagnosis hyperkalemia, renal failure, dehydration Pertinent Medical Hx/Surgical Hx HTN, DM, UTI, major depression , anemia, hypercholesterolemia , vit D deficiency, CHF, dyslipidemia, arthritis, dementia, CHF, depression, dementia Subjective Information Consult received for Negrito Nils . Pt seen lying in bed at time of visit. Pt has NGT noted. Current Diet Order/ Nutrition Support NPO Pertinent Medications D5-0.45ns, colace, novolog, levemir, levaquin, megace, protonix, miralax Pertinent Labs 09/17 K 5.9, cl 110, BUN 210, Cr 4.6, glucose 197, POC 146-225 , Ca 11.1, K 6.7 09/16 K 6.4, Cl 108, BUN 223, Cr 4.8, glucose 116, Ca 11.5 Nutritional Hx/Data Height 1.7 m Height (Calculated Centimeters) 170.2 Current Weight (lbs) 53.07 kg Weight (Calculated Kilograms) 53.1 Weight (Calculated Grams) 30474.3 [place] Body Weight 135 % [place] Body Weight 86 Body Mass Index (BMI) 18.3 Weight Status Underweight GI Symptoms GI Symptoms None Last BM 6/ x 4 Difficult in: None Usual diet at home soft NCS MOON at care facility per chart Skin Integrity/Comment: pressure area reddended to right/left foot Estimated Nutritional Goals BEE in Kcals: Using Current wt Calories/Kcals/Kg 27-32 Kcals Calculated 9563-3457 Protein: Using Current wt Protein g/kg: per MD Protein Calculated per MD Fluid: ml Per MD Nutritional Problem 1. Problem Problem altered nutrition related labs Etiology electrolytes/fluid imbalance, renal failure, hx of DM Signs/Symptoms: K 5.9, cl 110, BUN 210, Cr 4.6 , glucose 197, POC 146-225, Ca 11.1, K 6.7 Malnutrition Alert Is there a minimum of two criteria No selected? Query Text:Check all the applicable criteria. A minimum of two criteria are recommended for diagnosis of either severe or non-severe malnutrition. Malnutrition Related to Morbid Obesity Malnutrition related to morbid obesity No Intervention/Recommendation Comments 1. Monitor NPO status. 2. Monitor wt, labs and skin integrity 3. F/U as high risk in 2-3 days, 6/3-6/4 Expected Outcomes/Goals Expected Outcomes/Goals 1. PO intake to meet at least 75% of nutritional needs. 2. Wt stability, skin to remain intact, labs to approach WNL.
[2017-09-21] MEDS ORDERED: Mag Sulfate 2gm/50mL Premix 2 GM/50 ML BAG IV ONE (12:15)
[2017-09-21] MEDS: Atorvastatin Calcium 10 MG TAB PO SCH (21:07)
[2017-09-21] MEDS: Insulin Detemir 100 units/mL 10mL Vial SUBQ SCH (21:13)
[2017-09-22] MEDS: metroNIDAZOLE 500mg/NS 100mL 500 MG/100 ML BAG IV SCH ×3 (01:06→17:16)
[2017-09-22 06:49] LABS: ANION GAP 11.5 (7.0-16.0); CALCIUM SERUM 9.5 mg/dL (8.6-10.3); CARBON DIOXIDE 20.3 mEq/L (21.0-31.0); CHLORIDE 117 mEq/L (98-107); CREATININE - SERUM 2.1 mg/dL (0.6-1.2); GLUCOSE 108 mg/dL (70-105); MAGNESIUM 2.1 mg/dL (1.9-2.7); POTASSIUM SERUM 4.8 mEq/L (3.5-5.1)
[2017-09-22 07:11] LABS: BUN - UREA NITROGEN 93 mg/dL (7-25)
[2017-09-22] MEDS: Diltiazem 30 mg Tab PO SCH ×2 (07:45→13:34)
[2017-09-22 07:57] LABS: SODIUM SERUM 144 mEq/L (136-145)
--- NOTE | 2017-09-22 08:23 | Diagnostic Imaging Report ---
Portable chest x-ray HISTORY: Shortness of breath, nasogastric tube placement The heart size is normal. No focal prominent processes. Calcified mediastinal lymph nodes consistent with old granulomatous disease. Nasogastric tube projects over the region of the stomach. IMPRESSION: 1. Nasogastric tube projecting over the gastric. 2. No acute focal pulmonary processes
[2017-09-22] MEDS: D5-0.45NS w/10 mEq KCL 1,000 ML IV SCH (09:17)
[2017-09-22] MEDS: Aspirin 81mg Chewable Tab PO SCH (09:18)
[2017-09-22] MEDS: Levofloxacin 250mg/50mL 250 MG/50 ML BAG IV SCH (09:18)
[2017-09-22] MEDS: Lactobacillus Rhamnosus GG 15 Billion CFU CAP.SPRINK PO SCH (09:19)
[2017-09-22] MEDS: POLYETHYLENE GLYCOL 3350 17 GM PACK PO SCH (09:20)
[2017-09-22] MEDS: INSULIN ASPART SLIDING SCALE 100 UNITS/ML UNIT SUBQ SCH ×3 (09:29→17:14)
--- NOTE | 2017-09-22 10:32 | Diagnostic Imaging Report ---
Portable chest x-ray HISTORY: Shortness of breath, nasogastric tube placement Compared to prior exam performed earlier in the day, nasogastric tube projects over the gastric area. No focal pulmonary processes. IMPRESSION: 1. Nasogastric tube projecting over the stomach 2. No focal pulmonary processes
--- NOTE | 2017-09-22 13:21 | General Progress Note ---
Subjective - Review of Systems Service Date: 09/22/17 Subjective: more awake, nonverbal Objective - Results Result Diagrams: 09/21/17 04:15 09/22/17 05:50 Recent Labs: Laboratory Last Values WBC 10.3 Th/cmm (4.8-10.8) 09/21/17 04:15 RBC 3.50 Mil/cmm (3.80-5.20) L 09/21/17 04:15 Hgb 10.3 gm/dL (12-16) L 09/21/17 04:15 Hct 30.6 % (41.0-60) L D 09/21/17 04:15 MCV 87.4 fl (81-100) 09/21/17 04:15 MCH 29.4 pg (27.0-31.0) 09/21/17 04:15 MCHC Differential 33.6 pg (28.0-36.0) 09/21/17 04:15 RDW 14.0 % (11.5-20.0) 09/21/17 04:15 Plt Count 222 Th/cmm (150-400) 09/21/17 04:15 MPV 7.9 fl 09/21/17 04:15 Neutrophils % 83.8 % (40.0-80.0) H 09/21/17 04:15 Band Neutrophils % 1 % (0-10) 09/19/17 04:50 Lymphocytes % 10.8 % (20.0-50.0) L 09/21/17 04:15 Monocytes % 4.7 % (2.0-10.0) 09/21/17 04:15 Eosinophils % 0.6 % (0.0-5.0) 09/21/17 04:15 Basophils % 0.1 % (0.0-2.0) 09/21/17 04:15 Neutrophils (Manual) 89 % (40-80) H 09/20/17 04:15 Lymphocytes 10 % (20-50) L 09/20/17 04:15 Monocytes 1 % (2-10) L 09/20/17 04:15 Eosinophils 1 % (0-5) 09/19/17 04:50 Basophils 0 % (0-3) 09/18/17 04:40 Platelet Estimate ADEQUATE (NORMAL) 09/19/17 04:50 Platelet Morphology NORMAL (NORMAL) 09/18/17 04:40 [place] Cells 1+ 09/19/17 04:50 RBC Morph Micro Appear NORMAL (NORMAL) 09/18/17 04:40 Eos Smear Source URINE 09/17/17 17:40 Eos Smear Total Cells NONE SEEN (NONE SEEN) 09/17/17 17:40 Specimen Source ARTERIAL 09/17/17 01:06 Sample Site Right Radial 09/17/17 01:06 pH 7.39 (7.35-7.45) 09/17/17 01:06 pCO2 22.0 mmHg (35.0-45.0) L* 09/17/17 01:06 pO2 105.0 mmHg (80.0-100.0) H 09/17/17 01:06 HCO3 17.4 mEq/L (20.0-26.0) L 09/17/17 01:06 Base Excess -9.7 mEq/L (-3.0-3.0) L 09/17/17 01:06 O2 Saturation 98.0 % (92.0-100.0) 09/17/17 01:06 Dheeraj Test Positive 09/17/17 01:06 Vent Rate N/A 09/17/17 01:06 Inspired O2 21 09/17/17 01:06 Tidal Volume N/A 09/17/17 01:06 PEEP N/A 09/17/17 01:06 Pressure (ins/psv/peep) N/A 09/17/17 01:06 Critical Value MM,BUSINESS COORDINATOR 09/17/17 01:06 Sodium 144 mEq/L (136-145) 09/22/17 05:50 Potassium 4.8 mEq/L (3.5-5.1) 09/22/17 05:50 Chloride 117 mEq/L (98-107) H 09/22/17 05:50 Carbon Dioxide 20.3 mEq/L (21.0-31.0) L 09/22/17 05:50 Anion Gap 11.5 (7.0-16.0) 09/22/17 05:50 BUN 93 mg/dL (7-25) H* 09/22/17 05:50 Creatinine 2.1 mg/dL (0.6-1.2) H 09/22/17 05:50 Est GFR ( Amer) TNP 09/22/17 05:50 Est GFR (Non-Af Amer) TNP 09/22/17 05:50 BUN/Creatinine Ratio 44.3 09/22/17 05:50 Glucose 108 mg/dL (70-105) H 09/22/17 05:50 POC Glucose 86 MG/DL (70 - 105) 09/22/17 09:23 Hemoglobin A1c % 5.9 % (4.0-6.0) 09/17/17 07:05 Whole Bld Lactic Acid 1.31 mmol/L (0.60-1.99) 09/16/17 22:02 Uric Acid 8.8 mg/dL (2.3-6.6) H 09/18/17 04:40 Calcium 9.5 mg/dL (8.6-10.3) 09/22/17 05:50 Phosphorus 6.7 mg/dL (2.5-5.0) H 09/17/17 07:05 Magnesium 2.1 mg/dL (1.9-2.7) 09/22/17 05:50 Total Bilirubin 0.7 mg/dL (0.3-1.0) 09/21/17 04:15 AST 27 U/L (13-39) 09/21/17 04:15 ALT 19 U/L (7-52) 09/21/17 04:15 Alkaline Phosphatase 56 U/L (34-104) 09/21/17 04:15 Troponin I 2.89 ng/mL (0.01-0.05) H* D 09/21/17 04:15 B-Natriuretic Peptide 307.0 pg/mL (5.0-100.0) H 09/20/17 04:15 Total Protein 5.5 gm/dL (6.0-8.3) L 09/21/17 04:15 Albumin 3.2 gm/dL (3.7-5.3) L 09/21/17 04:15 Globulin 2.3 gm/dL 09/21/17 04:15 Albumin/Globulin Ratio 1.4 (1.0-1.8) 09/21/17 04:15 Triglycerides 22 mg/dL (<150) 09/20/17 04:15 Cholesterol 65 mg/dL (<200) 09/20/17 04:15 LDL Cholesterol Direct 15 mg/dL (75-193) L 09/20/17 04:15 HDL Cholesterol 40 mg/dL (23-92) 09/20/17 04:15 TSH 0.59 uIU/ml (0.34-5.60) 09/17/17 07:05 Urine Source [place] 09/17/17 02:30 Urine Color YELLOW 09/17/17 02:30 Urine Clarity HAZY (CLEAR) 09/17/17 02:30 Urine pH 8.5 (4.6 - 8.0) 09/17/17 02:30 Ur Specific [place] 1.010 (1.005-1.030) 09/17/17 02:30 Urine Protein 30 mg/dL (NEGATIVE) H 09/17/17 02:30 Urine Glucose (UA) NEGATIVE mg/dL (NEGATIVE) 09/17/17 02:30 Urine Ketones NEGATIVE mg/dL (NEGATIVE) 09/17/17 02:30 Urine Blood SMALL (NEGATIVE) H 09/17/17 02:30 Urine Nitrate NEGATIVE (NEGATIVE) 09/17/17 02:30 Urine Bilirubin NEGATIVE (NEGATIVE) 09/17/17 02:30 Urine Urobilinogen 0.2 E.U./dL (0.2 - 1.0) 09/17/17 02:30 Ur Leukocyte Esterase LARGE (NEGATIVE) H 09/17/17 02:30 Urine RBC 2-5 /hpf (0-5) 09/17/17 02:30 Urine WBC 25-50 /hpf (0-5) H 09/17/17 02:30 Ur Epithelial Cells MODERATE /lpf (FEW) 09/17/17 02:30 Urine Bacteria MANY /hpf (NONE SEEN) H 09/17/17 02:30 Urine Osmolality 426 mOsmol/kg 09/17/17 17:40 U Random Total Protein 39.0 mg/dL 09/18/17 19:00 Ur Random Sodium 33 mmol/L 09/17/17 17:40 Urine Collection Time 24 hours 09/18/17 19:00 Urine Total Volume 900 ml 09/18/17 19:00 Urine Creatinine 65.0 mg/dl (28.0-217.0) 09/17/17 17:40 U Tot Protein 24h, Calc 39.0 mg/24 hr (0-165) 09/18/17 19:00 Blood Type O POSITIVE 09/20/17 22:13 Antibody Screen NEGATIVE 09/20/17 22:13 Crossmatch See Detail 09/20/17 22:13 - Physical Exam Vitals and I&O: Vital Signs Temp 98.1 F 09/22/17 11:55 Pulse 92 09/22/17 11:55 Resp 20 09/22/17 12:00 BP 138/84 09/22/17 11:55 Pulse Ox 100 09/22/17 11:55 Intake & Output 09/21/17 09/22/17 09/22/17 18:59 06:59 18:59 Intake Total 7147.899 5754 Output Total 700 375 Balance 718.333 625 Weight (lbs) 64.41 kg 64.41 kg Intake: Intake, IV Amount 418.627 8496 D5-0.45NS w/10 mEq KCL 1, 806.507 1424 000 ml @ 100 mls/hr IV . Q10H [facility] Rx#:[id number] Levofloxacin 250mg/50mL 50 250 mg In 50 ml @ 50 mls/ hr IV Q24H [facility] Rx#: [id number] cefTRIAXone 1 gm In 50 Dextrose 5% 50 ml @ 100 mls/hr IV Q24H [facility] Rx#: [id number] metroNIDAZOLE 500mg/NS 200 100mL 500 mg In 100 ml @ 100 mls/hr IV Q8H [facility] Rx# :[id number] Other 540 Output: Urine 700 375 Other: Weight Source Bedscale Bedscale Active Medications: Current Medications Acetaminophen (Tylenol) 650 mg PO Q6HR PRN PRN Reason: Pain or Fever >101 Stop: 11/16/17 07:14 Acetaminophen/Hydrocodone Bitart (Waddy 5mg/325mg) 1 tab PO Q6H PRN PRN Reason: Pain (Severe) Stop: 11/16/17 07:14 Last Admin: 09/21/17 07:29 Dose: 1 tab Aspirin (Aspirin Chewable) 325 mg PO DAILY [facility] Stop: 11/18/17 06:59 Last Admin: 09/22/17 09:18 Dose: 325 mg Atorvastatin Calcium (Lipitor) 20 mg PO HS [facility]; Protocol Stop: 11/18/17 20:59 Last Admin: 09/21/17 21:07 Dose: 20 mg Bisacodyl (Dulcolax 10 Mg Supp) 10 mg RC DAILY PRN PRN Reason: Constipation Stop: 11/16/17 07:14 Diltiazem HCl (Cardizem) 30 mg PO Q8HR [facility] Stop: 11/17/17 20:59 Last Admin: 09/22/17 07:45 Dose: Not Given Diltiazem HCl (Cardizem) 5 mg IVP Q3HR PRN PRN Reason: HEART RATE > 110 Stop: 11/17/17 13:51 Docusate Sodium (Colace) 100 mg PO DAILY [facility] Stop: 11/16/17 08:59 Last Admin: 09/22/17 09:18 Dose: 100 mg Heparin Sodium (Porcine) (Heparin) 5,000 units SUBQ Q12H [facility] Stop: 11/16/17 20:59 Last Admin: 09/22/17 09:19 Dose: 5,000 units Hydralazine HCl (Apresoline 20 Mg/Ml) 10 mg IV Q6HR PRN PRN Reason: htn sbp >165 Stop: 11/16/17 07:18 Last Admin: 09/21/17 15:41 Dose: 10 mg Metronidazole (Flagyl) 500 mg in 100 mls @ 100 mls/hr IV Q8H [facility] Stop: 11/16/17 08:59 Last Admin: 09/22/17 01:06 Dose: 100 mls/hr Potassium Chloride/Dextrose/Sod Cl (D5-0.45ns W/10 Meq Kcl) 1,000 mls @ 100 mls /hr IV .Q10H [facility] Stop: 11/18/17 09:59 Last Admin: 09/22/17 09:17 Dose: 100 mls/hr Ceftriaxone Sodium 1 gm/ (Dextrose) 50 mls @ 100 mls/hr IV Q24H [facility] Stop: 11/19/17 08:59 Last Admin: 09/22/17 10:22 Dose: 100 mls/hr Insulin Aspart (Novolog Insulin Sliding Scale) 0 units SUBQ ACHS [facility]; Protocol Stop: 11/16/17 07:29 Last Admin: 09/22/17 09:29 Dose: Not Given Insulin Detemir (Levemir Insulin) 6 units SUBQ HS [facility]; Protocol Stop: 11/16/17 20:59 Last Admin: 09/21/17 21:13 Dose: Not Given Isosorbide Mononitrate (Imdur) 60 mg PO BID [facility] Stop: 11/16/17 08:59 Last Admin: 09/22/17 09:19 Dose: 60 mg Lactobacillus Rhamnosus (Culturelle 15b) 1 each PO DAILY [facility] Stop: 11/19/17 10:59 Last Admin: 09/22/17 09:19 Dose: 1 each Lorazepam (Ativan) 0.5 mg IVP Q4HR PRN; Protocol PRN Reason: Agitation Stop: 11/16/17 09:19 Last Admin: 09/19/17 04:37 Dose: 0.5 mg Magnesium Hydroxide (Milk Of Magnesia) 30 ml PO HS PRN PRN Reason: Constipation Stop: 11/16/17 07:14 Megestrol Acetate (Megace) 400 mg PO BID [facility] Stop: 11/16/17 08:59 Last Admin: 09/22/17 09:20 Dose: 400 mg Metoprolol Tartrate (Lopressor) 25 mg PO BID [facility] Stop: 11/16/17 08:59 Last Admin: 09/22/17 09:19 Dose: 25 mg Miscellaneous (Clinical Monitoring) 1 ea MC DAILY PRN PRN Reason: RENAL DOSING Stop: 11/16/17 08:05 Miscellaneous (Vte Chemical Prophylaxis Screen/ Admission) 1 ea PRN PRN PRN Reason: PROTOCOL Stop: 11/16/17 14:17 Miscellaneous (Probiotic Screen) 1 ea PRN PRN PRN Reason: PROTOCOL Stop: 11/19/17 10:10 Pantoprazole Sodium (Protonix) 40 mg IVP DAILY [facility] Stop: 11/16/17 11:29 Last Admin: 09/22/17 09:18 Dose: 40 mg Polyethylene Glycol (Miralax) 17 gm PO DAILY [facility] Stop: 11/16/17 08:59 Last Admin: 09/22/17 09:20 Dose: 17 gm Rivastigmine (Exelon 9.5 Mg/24 Hr Tdm) 1 patch TD DAILY [facility] Stop: 11/16/17 08:59 Last Admin: 09/21/17 08:32 Dose: 1 patch Sodium Bicarbonate (Sodium Bicarbonate) 650 mg PO TID [facility]; Protocol Stop: 11/18/17 08:59 Last Admin: 09/22/17 09:19 Dose: 650 mg General: Alert, No acute distress HEENT: Atraumatic, Mucous membr. moist/pink Neck: Supple, +2 carotid pulse wo bruit Cardiovascular: Other (irregular) Lungs: Clear to auscultation Abdomen: Bowel sounds, Soft Extremities: no Edema Neurological: Sensation intact Skin: no Rash Psych/Mental Status: Mood NL Assessment/Plan - Assessment Assessment: ARF Hyperkalemia Cx Proteus UTI FTT Fecal impaction T2DM Dementia w/ behavioural disturbance Chronic A. fib NSTE UT - Plan Plan: Lab - Result Diagrams 09/18/17 04:40 09/18/17 04:40 Current Medications Acetaminophen (Tylenol) 650 mg PO Q6HR PRN PRN Reason: Pain or Fever >101 Stop: 11/16/17 07:14 Acetaminophen/Hydrocodone Bitart (Waddy 5mg/325mg) 1 tab PO Q6H PRN PRN Reason: Pain (Severe) Stop: 11/16/17 07:14 Last Admin: 09/17/17 23:43 Dose: 1 tab Aspirin (Aspirin Chewable) 81 mg PO DAILY [facility] Stop: 11/16/17 08:59 Last Admin: 09/18/17 08:22 Dose: 81 mg Bisacodyl (Dulcolax 10 Mg Supp) 10 mg RC DAILY PRN PRN Reason: Constipation Stop: 11/16/17 07:14 Docusate Sodium (Colace) 100 mg PO DAILY [facility] Stop: 11/16/17 08:59 Last Admin: 09/18/17 08:22 Dose: 100 mg Heparin Sodium (Porcine) (Heparin) 5,000 units SUBQ Q12H [facility] Stop: 11/16/17 20:59 Last Admin: 09/18/17 08:22 Dose: 5,000 units Hydralazine HCl (Apresoline 20 Mg/Ml) 10 mg IV Q6HR PRN PRN Reason: htn sbp >165 Stop: 11/16/17 07:18 Last Admin: 09/18/17 08:18 Dose: 10 mg Metronidazole (Flagyl) 500 mg in 100 mls @ 100 mls/hr IV Q8H [facility] Stop: 11/16/17 08:59 Last Infusion: 09/18/17 10:03 Dose: Infused Levofloxacin (Levaquin Pb) 250 mg in 50 mls @ 50 mls/hr IV Q24H [facility] Stop: 11/17/17 08:59 Last Infusion: 09/18/17 09:25 Dose: Infused Dextrose/Sodium Chloride (D5-0.45ns) 1,000 mls @ 125 mls/hr IV .Q8H [facility] Stop: 11/16/17 14:44 Last Admin: 09/18/17 06:48 Dose: 125 mls/hr Potassium Chloride (Potassium Chloride) 40 meq in 200 mls @ 50 mls/hr IV 0730 [facility] Stop: 09/19/17 11:29 Last Admin: 09/18/17 08:52 Dose: 50 mls/hr Insulin Aspart (Novolog Insulin Sliding Scale) 0 units SUBQ ACHS [facility]; Protocol Stop: 11/16/17 07:29 Last Admin: 09/18/17 12:45 Dose: Not Given Insulin Detemir (Levemir Insulin) 6 units SUBQ HS [facility]; Protocol Stop: 11/16/17 20:59 Last Admin: 09/17/17 20:35 Dose: 6 units Isosorbide Mononitrate (Imdur) 60 mg PO BID [facility] Stop: 11/16/17 08:59 Last Admin: 09/18/17 08:21 Dose: 60 mg Lorazepam (Ativan) 0.5 mg IVP Q4HR PRN; Protocol PRN Reason: Agitation Stop: 11/16/17 09:19 Last Admin: 09/18/17 08:59 Dose: 0.5 mg Magnesium Hydroxide (Milk Of Magnesia) 30 ml PO HS PRN PRN Reason: Constipation Stop: 11/16/17 07:14 Megestrol Acetate (Megace) 400 mg PO BID [facility] Stop: 11/16/17 08:59 Last Admin: 09/18/17 08:21 Dose: 400 mg Metoprolol Tartrate (Lopressor) 25 mg PO BID [facility] Stop: 11/16/17 08:59 Last Admin: 09/18/17 08:22 Dose: 25 mg Miscellaneous (Clinical Monitoring) 1 ea MC DAILY PRN PRN Reason: RENAL DOSING Stop: 11/16/17 08:05 Miscellaneous (Vte Chemical Prophylaxis Screen/ Admission) 1 ea MC PRN PRN PRN Reason: PROTOCOL Stop: 11/16/17 14:17 Miscellaneous (Misc Injection) 1 vial IVP Q3HR PRN PRN Reason: HEART RATE > 110 BPM Stop: 11/17/17 12:53 Pantoprazole Sodium (Protonix) 40 mg IVP DAILY [facility] Stop: 11/16/17 11:29 Last Admin: 09/18/17 08:21 Dose: 40 mg Polyethylene Glycol (Miralax) 17 gm PO DAILY [facility] Stop: 11/16/17 08:59 Last Admin: 09/18/17 09:51 Dose: Not Given Rivastigmine (Exelon 9.5 Mg/24 Hr Tdm) 1 patch TD DAILY [facility] Stop: 11/16/17 08:59 Last Admin: 09/18/17 10:00 Dose: 1 pat Lab - Result Diagrams 09/21/17 04:15 09/22/17 05:50 kidney fnc improved w/ BUN/CR of 93/2.1 now nonoliguric replace K, MG start Cardizem for A. fib Echo LVH, EJF 55% continue hydration elevated Troponin on ASA, metoprolol Nutritional Asmnt/Malnutr-PDOC - Dietary Evaluation Malnutrition Findings (Please click <Entered> for more info): Nutritional Asmnt/Malnutrition Start: 09/17/17 14: 32 Text: Status: Complete Freq: Protocol: Document 09/17/17 14:35 LCHENG (Rec: 09/17/17 15:03 LCHENG [email or web address]) Nutritional Asmnt/Malnutrition Patient General Information Nutritional Screening High Risk Consult Diagnosis hyperkalemia, renal failure, dehydration Pertinent Medical Hx/Surgical Hx HTN, DM, UTI, major depression , anemia, hypercholesterolemia , vit D deficiency, CHF, dyslipidemia, arthritis, dementia, CHF, depression, dementia Subjective Information Consult received for Negrito Nils . Pt seen lying in bed at time of visit. Pt has NGT noted. Current Diet Order/ Nutrition Support NPO Pertinent Medications D5-0.45ns, colace, novolog, levemir, levaquin, megace, protonix, miralax Pertinent Labs 09/17 K 5.9, cl 110, BUN 210, Cr 4.6, glucose 197, POC 146-225 , Ca 11.1, K 6.7 09/16 K 6.4, Cl 108, BUN 223, Cr 4.8, glucose 116, Ca 11.5 Nutritional Hx/Data Height 1.7 m Height (Calculated Centimeters) 170.2 Current Weight (lbs) 53.07 kg Weight (Calculated Kilograms) 53.1 Weight (Calculated Grams) 41624.3 [place] Body Weight 135 % [place] Body Weight 86 Body Mass Index (BMI) 18.3 Weight Status Underweight GI Symptoms GI Symptoms None Last BM 09/17 x 4 Difficult in: None Usual diet at home soft NCS MO[place] at care facility per chart Skin Integrity/Comment: pressure area reddended to right/left foot Estimated Nutritional Goals BEE in Kcals: Using Current wt Calories/Kcals/Kg 27-32 Kcals Calculated 9690-6880 Protein: Using Current wt Protein g/kg: per MD Protein Calculated per MD Fluid: ml Per MD Nutritional Problem 1. Problem Problem altered nutrition related labs Etiology electrolytes/fluid imbalance, renal failure, hx of DM Signs/Symptoms: K 5.9, cl 110, BUN 210, Cr 4.6 , glucose 197, POC 146-225, Ca 11.1, K 6.7 Malnutrition Alert Is there a minimum of two criteria No selected? Query Text:Check all the applicable criteria. A minimum of two criteria are recommended for diagnosis of either severe or non-severe malnutrition. Malnutrition Related to Morbid Obesity Malnutrition related to morbid obesity No Intervention/Recommendation Comments 1. Monitor NPO status. 2. Monitor wt, labs and skin integrity 3. F/U as high risk in 2-3 days, 09/19-09/20 Expected Outcomes/Goals Expected Outcomes/Goals 1. PO intake to meet at least 75% of nutritional needs. 2. Wt stability, skin to remain intact, labs to approach WNL.
--- NOTE | 2017-09-22 16:06 | Progress Notes ---
DATE: 09/21/2017 SUBJECTIVE: The patient was seen earlier in the Intensive Care Unit. OBJECTIVE: VITAL SIGNS: Basically stable. HEENT: Normocephalic, atraumatic. Pupils equal, round, react to light and accommodation. CHEST: Symmetrical. LUNGS: Few wheezing appreciated. CARDIAC: Normal sinus rhythm, S1, S2. ABDOMEN: Benign, soft, nontender. EXTREMITIES: No clubbing, cyanosis, edema bilaterally . NEUROLOGICAL: Unremarkable. LABORATORY DATA: Reviewed as seen on the computer. Troponin 2.89, magnesium 1.7, BUN 102, creatinine 2.3. Urine culture revealed Proteus mirabilis. ASSESSMENT AND PLAN: 1. Elevated troponin: This is trending down somewhat, and the patient is already on Lipitor 20 mg, aspirin 325 mg as well as beta-terra, metoprolol 25 mg b.i.d. We will continue such medication and avoid DELMI inhibitor or ARB due to acute renal failure. 2. Acute renal failure: Improving. We will try to avoid nephrotoxic medications if possible. 3. Proteus mirabilis urinary tract infection: Continue IV empiric antibiotics. 4. Altered level of consciousness due to metabolic encephalopathy or dementia. 5. Agitation on and off. We will observe closely. 6. Anemia, status post blood transfusion with stabilization. 7. Atrial fibrillation with rate controlled. 8. DVT prophylaxis. JOB# [id number]
[2017-09-22] MEDS: Rivastigmine 9.5 mg/24 hr Tdm TD SCH (18:14)
[2017-09-23] MEDS: Atorvastatin Calcium 10 MG TAB PO SCH ×2 (00:04→22:16)
[2017-09-23] MEDS: Diltiazem 30 mg Tab PO SCH ×4 (00:06→22:17)
[2017-09-23] MEDS: INSULIN ASPART SLIDING SCALE 100 UNITS/ML UNIT SUBQ SCH ×4 (00:08→17:00)
[2017-09-23] MEDS: metroNIDAZOLE 500mg/NS 100mL 500 MG/100 ML BAG IV SCH ×3 (00:09→16:58)
[2017-09-23] MEDS: Insulin Detemir 100 units/mL 10mL Vial SUBQ SCH ×2 (00:30→23:01)
[2017-09-23] MEDS: D5-0.45NS w/10 mEq KCL 1,000 ML IV SCH ×2 (06:00→22:31)
[2017-09-23 06:34] LABS: ALB/GLOB RATIO 1.4 (1.0-1.8); ALBUMIN 3.3 gm/dL (3.7-5.3); ALKALINE PHOSPHATASE 41 U/L (34-104); ANION GAP 11.4 (7.0-16.0); BILIRUBIN,TOTAL 0.9 mg/dL (0.3-1.0); BUN - UREA NITROGEN 79 mg/dL (7-25); CALCIUM SERUM 10.1 mg/dL (8.6-10.3); CARBON DIOXIDE 19.3 mEq/L (21.0-31.0); CHLORIDE 119 mEq/L (98-107); CREATININE - SERUM 2.1 mg/dL (0.6-1.2); GLUCOSE 86 mg/dL (70-105); POTASSIUM SERUM 4.7 mEq/L (3.5-5.1); SGOT 26 U/L (13-39); SGPT/ALT 18 U/L (7-52); SODIUM SERUM 145 mEq/L (136-145); TOTAL PROTEIN,SERUM 5.6 gm/dL (6.0-8.3)
[2017-09-23 06:49] LABS: % BASOPHILS 0.4 % (0.0-2.0); % EOSINOPHILS 0.3 % (0.0-5.0); % LYMPHOCYTES 9.5 % (20.0-50.0); % MONOCYTES 3.8 % (2.0-10.0); HEMATOCRIT 27.2 % (41.0-60); HEMOGLOBIN 9.1 gm/dL (12-16); LYMPHOCYTE ABSOLUTE 1.1 Th/cmm (1.5-3.0); MEAN CELL VOLUME 87.7 fl (81-100); MEAN CORPUSCULAR HEMOGLOBIN 29.4 pg (27.0-31.0); MEAN CORPUSCULAR HGB CONC 33.5 pg (28.0-36.0); MEAN PLATELET VOLUME 7.4 fl; MONOCYTE ABSOLUTE 0.4 Th/cmm (0.3-1.0); NEUTROPHILE ABSOLUTE 9.8 Th/cmm (1.8-8.0); PLATELET COUNT 197 Th/cmm (150-400); RED CELL DISTRIBUTION WIDTH 14.5 % (11.5-20.0); WHITE BLOOD COUNT 11.3 Th/cmm (4.8-10.8)
[2017-09-23] MEDS ORDERED: Metoprolol tartrate 1 mg/ml 5mL Amp IV PRN (08:44)
[2017-09-23] MEDS: Aspirin 81mg Chewable Tab PO SCH (09:17)
[2017-09-23] MEDS: Lactobacillus Rhamnosus GG 15 Billion CFU CAP.SPRINK PO SCH (09:18)
[2017-09-23] MEDS: POLYETHYLENE GLYCOL 3350 17 GM PACK PO SCH (09:18)
[2017-09-23] MEDS: Rivastigmine 9.5 mg/24 hr Tdm TD SCH (09:54)
[2017-09-23] MEDS: Hydrocodone/APAP 5mg/325mg Tab PO PRN (14:29)
--- NOTE | 2017-09-23 14:47 | General Progress Note ---
Subjective - Review of Systems Service Date: 09/23/17 Subjective: more awake, nonverbal Objective - Results Result Diagrams: 09/23/17 06:35 09/23/17 06:00 Recent Labs: Laboratory Last Values WBC 11.3 Th/cmm (4.8-10.8) H 09/23/17 06:35 RBC 3.10 Mil/cmm (3.80-5.20) L 09/23/17 06:35 Hgb 9.1 gm/dL (12-16) L 09/23/17 06:35 Hct 27.2 % (41.0-60) L 09/23/17 06:35 MCV 87.7 fl (81-100) 09/23/17 06:35 MCH 29.4 pg (27.0-31.0) 09/23/17 06:35 MCHC Differential 33.5 pg (28.0-36.0) 09/23/17 06:35 RDW 14.5 % (11.5-20.0) 09/23/17 06:35 Plt Count 197 Th/cmm (150-400) 09/23/17 06:35 MPV 7.4 fl 09/23/17 06:35 Neutrophils % 86.0 % (40.0-80.0) H 09/23/17 06:35 Band Neutrophils % 1 % (0-10) 09/19/17 04:50 Lymphocytes % 9.5 % (20.0-50.0) L 09/23/17 06:35 Monocytes % 3.8 % (2.0-10.0) 09/23/17 06:35 Eosinophils % 0.3 % (0.0-5.0) 09/23/17 06:35 Basophils % 0.4 % (0.0-2.0) 09/23/17 06:35 Neutrophils (Manual) 89 % (40-80) H 09/20/17 04:15 Lymphocytes 10 % (20-50) L 09/20/17 04:15 Monocytes 1 % (2-10) L 09/20/17 04:15 Eosinophils 1 % (0-5) 09/19/17 04:50 Basophils 0 % (0-3) 09/18/17 04:40 Platelet Estimate ADEQUATE (NORMAL) 09/19/17 04:50 Platelet Morphology NORMAL (NORMAL) 09/18/17 04:40 [place] Cells 1+ 09/19/17 04:50 RBC Morph Micro Appear NORMAL (NORMAL) 09/18/17 04:40 Eos Smear Source URINE 09/17/17 17:40 Eos Smear Total Cells NONE SEEN (NONE SEEN) 09/17/17 17:40 Specimen Source ARTERIAL 09/17/17 01:06 Sample Site Right Radial 09/17/17 01:06 pH 7.39 (7.35-7.45) 09/17/17 01:06 pCO2 22.0 mmHg (35.0-45.0) L* 09/17/17 01:06 pO2 105.0 mmHg (80.0-100.0) H 09/17/17 01:06 HCO3 17.4 mEq/L (20.0-26.0) L 09/17/17 01:06 Base Excess -9.7 mEq/L (-3.0-3.0) L 09/17/17 01:06 O2 Saturation 98.0 % (92.0-100.0) 09/17/17 01:06 Dheeraj Test Positive 09/17/17 01:06 Vent Rate N/A 09/17/17 01:06 Inspired O2 21 09/17/17 01:06 Tidal Volume N/A 09/17/17 01:06 PEEP N/A 09/17/17 01:06 Pressure (ins/psv/peep) N/A 09/17/17 01:06 Critical Value MM,[employer] 09/17/17 01:06 Sodium 145 mEq/L (136-145) 09/23/17 06:00 Potassium 4.7 mEq/L (3.5-5.1) 09/23/17 06:00 Chloride 119 mEq/L (98-107) H 09/23/17 06:00 Carbon Dioxide 19.3 mEq/L (21.0-31.0) L 09/23/17 06:00 Anion Gap 11.4 (7.0-16.0) 09/23/17 06:00 BUN 79 mg/dL (7-25) H 09/23/17 06:00 Creatinine 2.1 mg/dL (0.6-1.2) H 09/23/17 06:00 Est GFR ( Amer) TNP 09/23/17 06:00 Est GFR (Non-Af Amer) TNP 09/23/17 06:00 BUN/Creatinine Ratio 37.6 09/23/17 06:00 Glucose 86 mg/dL (70-105) 09/23/17 06:00 POC Glucose 92 MG/DL (70 - 105) 09/23/17 11:48 Hemoglobin A1c % 5.9 % (4.0-6.0) 09/17/17 07:05 Whole Bld Lactic Acid 1.31 mmol/L (0.60-1.99) 09/16/17 22:02 Uric Acid 8.8 mg/dL (2.3-6.6) H 09/18/17 04:40 Calcium 10.1 mg/dL (8.6-10.3) 09/23/17 06:00 Phosphorus 6.7 mg/dL (2.5-5.0) H 09/17/17 07:05 Magnesium 2.1 mg/dL (1.9-2.7) 09/22/17 05:50 Total Bilirubin 0.9 mg/dL (0.3-1.0) 09/23/17 06:00 AST 26 U/L (13-39) 09/23/17 06:00 ALT 18 U/L (7-52) 09/23/17 06:00 Alkaline Phosphatase 41 U/L (34-104) 09/23/17 06:00 Troponin I 1.51 ng/mL (0.01-0.05) H* D 09/23/17 06:00 B-Natriuretic Peptide 307.0 pg/mL (5.0-100.0) H 09/20/17 04:15 Total Protein 5.6 gm/dL (6.0-8.3) L 09/23/17 06:00 Albumin 3.3 gm/dL (3.7-5.3) L 09/23/17 06:00 Globulin 2.3 gm/dL 09/23/17 06:00 Albumin/Globulin Ratio 1.4 (1.0-1.8) 09/23/17 06:00 Triglycerides 22 mg/dL (<150) 09/20/17 04:15 Cholesterol 65 mg/dL (<200) 09/20/17 04:15 LDL Cholesterol Direct 15 mg/dL (75-193) L 09/20/17 04:15 HDL Cholesterol 40 mg/dL (23-92) 09/20/17 04:15 TSH 0.59 uIU/ml (0.34-5.60) 09/17/17 07:05 Urine Source [place] 09/17/17 02:30 Urine Color YELLOW 09/17/17 02:30 Urine Clarity HAZY (CLEAR) 09/17/17 02:30 Urine pH 8.5 (4.6 - 8.0) 09/17/17 02:30 Ur Specific [place] 1.010 (1.005-1.030) 09/17/17 02:30 Urine Protein 30 mg/dL (NEGATIVE) H 09/17/17 02:30 Urine Glucose (UA) NEGATIVE mg/dL (NEGATIVE) 09/17/17 02:30 Urine Ketones NEGATIVE mg/dL (NEGATIVE) 09/17/17 02:30 Urine Blood SMALL (NEGATIVE) H 09/17/17 02:30 Urine Nitrate NEGATIVE (NEGATIVE) 09/17/17 02:30 Urine Bilirubin NEGATIVE (NEGATIVE) 09/17/17 02:30 Urine Urobilinogen 0.2 E.U./dL (0.2 - 1.0) 09/17/17 02:30 Ur Leukocyte Esterase LARGE (NEGATIVE) H 09/17/17 02:30 Urine RBC 2-5 /hpf (0-5) 09/17/17 02:30 Urine WBC 25-50 /hpf (0-5) H 09/17/17 02:30 Ur Epithelial Cells MODERATE /lpf (FEW) 09/17/17 02:30 Urine Bacteria MANY /hpf (NONE SEEN) H 09/17/17 02:30 Urine Osmolality 426 mOsmol/kg 09/17/17 17:40 U Random Total Protein 39.0 mg/dL 09/18/17 19:00 Ur Random Sodium 33 mmol/L 09/17/17 17:40 Urine Collection Time 24 hours 09/18/17 19:00 Urine Total Volume 900 ml 09/18/17 19:00 Urine Creatinine 65.0 mg/dl (28.0-217.0) 09/17/17 17:40 U Tot Protein 24h, Calc 39.0 mg/24 hr (0-165) 09/18/17 19:00 Blood Type O POSITIVE 09/20/17 22:13 Antibody Screen NEGATIVE 09/20/17 22:13 Crossmatch See Detail 09/20/17 22:13 - Physical Exam Vitals and I&O: Vital Signs Temp 97.0 F 09/23/17 11:39 Pulse 68 09/23/17 11:39 Resp 20 09/23/17 13:30 BP 148/80 09/23/17 11:39 Pulse Ox 97 09/23/17 11:39 Intake & Output 09/22/17 09/23/17 09/23/17 18:59 06:59 18:59 Intake Total 250 1760 Output Total 2550 Balance 250 -790 Weight (lbs) 63.049 kg Intake: Intake, IV Amount 250 1100 D5-0.45NS w/10 mEq KCL 1, 1000 000 ml @ 100 mls/hr IV . Q10H [facility] Rx#:[id number] cefTRIAXone 1 gm In 50 Dextrose 5% 50 ml @ 100 mls/hr IV Q24H [facility] Rx#: [id number] metroNIDAZOLE 500mg/NS 200 100 100mL 500 mg In 100 ml @ 100 mls/hr IV Q8H [facility] Rx# :[id number] Tube Feeding 660 Output: Urine 2550 Other: # Bowel Movements 1 Weight Source Bedscale Active Medications: Current Medications Acetaminophen (Tylenol) 650 mg PO Q6HR PRN PRN Reason: Pain or Fever >101 Stop: 11/16/17 07:14 Acetaminophen/Hydrocodone Bitart ([place] 5mg/325mg) 1 tab PO Q6H PRN PRN Reason: Pain (Severe) Stop: 11/16/17 07:14 Last Admin: 09/23/17 14:29 Dose: 1 tab Aspirin (Aspirin Chewable) 325 mg PO DAILY [facility] Stop: 11/18/17 06:59 Last Admin: 09/23/17 09:17 Dose: Not Given Atorvastatin Calcium (Lipitor) 20 mg PO HS [facility]; Protocol Stop: 11/18/17 20:59 Last Admin: 09/23/17 00:04 Dose: 20 mg Bisacodyl (Dulcolax 10 Mg Supp) 10 mg RC DAILY PRN PRN Reason: Constipation Stop: 11/16/17 07:14 Diltiazem HCl (Cardizem) 30 mg PO Q8HR [facility] Stop: 11/17/17 20:59 Last Admin: 09/23/17 13:14 Dose: Not Given Diltiazem HCl (Cardizem) 5 mg IVP Q3HR PRN PRN Reason: HEART RATE > 110 Stop: 11/17/17 13:51 Docusate Sodium (Colace) 100 mg PO DAILY [facility] Stop: 11/16/17 08:59 Last Admin: 09/23/17 09:17 Dose: Not Given Heparin Sodium (Porcine) (Heparin) 5,000 units SUBQ Q12H [facility] Stop: 11/16/17 20:59 Last Admin: 09/23/17 09:53 Dose: 5,000 units Hydralazine HCl (Apresoline 20 Mg/Ml) 10 mg IV Q6HR PRN PRN Reason: htn sbp >165 Stop: 11/16/17 07:18 Last Admin: 09/23/17 06:47 Dose: 10 mg Metronidazole (Flagyl) 500 mg in 100 mls @ 100 mls/hr IV Q8H [facility] Stop: 11/16/17 08:59 Last Admin: 09/23/17 09:53 Dose: 100 mls/hr Potassium Chloride/Dextrose/Sod Cl (D5-0.45ns W/10 Meq Kcl) 1,000 mls @ 100 mls /hr IV .Q10H [facility] Stop: 11/18/17 09:59 Last Admin: 09/23/17 06:00 Dose: 100 mls/hr Ceftriaxone Sodium 1 gm/ (Dextrose) 50 mls @ 100 mls/hr IV Q24H [facility] Stop: 11/19/17 08:59 Last Admin: 09/23/17 09:10 Dose: 100 mls/hr Insulin Aspart (Novolog Insulin Sliding Scale) 0 units SUBQ ACHS [facility]; Protocol Stop: 11/16/17 07:29 Last Admin: 09/23/17 13:13 Dose: Not Given Insulin Detemir (Levemir Insulin) 6 units SUBQ HS [facility]; Protocol Stop: 11/16/17 20:59 Last Admin: 09/23/17 00:30 Dose: 6 units Isosorbide Mononitrate (Imdur) 60 mg PO BID [facility] Stop: 11/16/17 08:59 Last Admin: 09/23/17 09:18 Dose: Not Given Lactobacillus Rhamnosus (Culturelle 15b) 1 each PO DAILY [facility] Stop: 11/19/17 10:59 Last Admin: 09/23/17 09:18 Dose: Not Given Lorazepam (Ativan) 0.5 mg IVP Q4HR PRN; Protocol PRN Reason: Agitation Stop: 11/16/17 09:19 Last Admin: 09/23/17 06:46 Dose: 0.5 mg Magnesium Hydroxide (Milk Of Magnesia) 30 ml PO HS PRN PRN Reason: Constipation Stop: 11/16/17 07:14 Megestrol Acetate (Megace) 400 mg PO BID [facility] Stop: 11/16/17 08:59 Last Admin: 09/23/17 09:18 Dose: Not Given Metoprolol Tartrate (Lopressor) 25 mg PO BID [facility] Stop: 11/16/17 08:59 Last Admin: 09/23/17 09:18 Dose: Not Given Metoprolol Tartrate (Lopressor) 5 mg IV Q4H PRN PRN Reason: heart rate greater than 120 bp Stop: 11/22/17 08:43 Last Admin: 09/23/17 09:11 Dose: 5 mg Miscellaneous (Clinical Monitoring) 1 ea MC DAILY PRN PRN Reason: RENAL DOSING Stop: 11/16/17 08:05 Miscellaneous (Vte Chemical Prophylaxis Screen/ Admission) 1 ea MC PRN PRN PRN Reason: PROTOCOL Stop: 11/16/17 14:17 Miscellaneous (Probiotic Screen) 1 ea MC PRN PRN PRN Reason: PROTOCOL Stop: 11/19/17 10:10 Pantoprazole Sodium (Protonix) 40 mg IVP DAILY [facility] Stop: 11/16/17 11:29 Last Admin: 09/23/17 10:02 Dose: 40 mg Polyethylene Glycol (Miralax) 17 gm PO DAILY [facility] Stop: 11/16/17 08:59 Last Admin: 09/23/17 09:18 Dose: Not Given Rivastigmine (Exelon 9.5 Mg/24 Hr Tdm) 1 patch TD DAILY [facility] Stop: 11/16/17 08:59 Last Admin: 09/23/17 09:54 Dose: 1 patch Sodium Bicarbonate (Sodium Bicarbonate) 650 mg PO TID [facility]; Protocol Stop: 11/18/17 08:59 Last Admin: 09/23/17 14:28 Dose: 650 mg General: Alert, No acute distress HEENT: Atraumatic, Mucous membr. moist/pink Neck: Supple, +2 carotid pulse wo bruit Cardiovascular: Other (irregular) Lungs: Clear to auscultation Abdomen: Bowel sounds, Soft Extremities: no Edema Neurological: Sensation intact Skin: no Rash Psych/Mental Status: Mood NL Assessment/Plan - Assessment Assessment: ARF Hyperkalemia Cx Proteus UTI FTT Fecal impaction T2DM Dementia w/ behavioural disturbance Chronic A. fib NSTE DE - Plan Plan: Lab - Result Diagrams 09/18/17 04:40 09/18/17 04:40 Current Medications Acetaminophen (Tylenol) 650 mg PO Q6HR PRN PRN Reason: Pain or Fever >101 Stop: 11/16/17 07:14 Acetaminophen/Hydrocodone Bitart ([place] 5mg/325mg) 1 tab PO Q6H PRN PRN Reason: Pain (Severe) Stop: 11/16/17 07:14 Last Admin: 09/17/17 23:43 Dose: 1 tab Aspirin (Aspirin Chewable) 81 mg PO DAILY [facility] Stop: 11/16/17 08:59 Last Admin: 09/18/17 08:22 Dose: 81 mg Bisacodyl (Dulcolax 10 Mg Supp) 10 mg RC DAILY PRN PRN Reason: Constipation Stop: 11/16/17 07:14 Docusate Sodium (Colace) 100 mg PO DAILY [facility] Stop: 11/16/17 08:59 Last Admin: 09/18/17 08:22 Dose: 100 mg Heparin Sodium (Porcine) (Heparin) 5,000 units SUBQ Q12H [facility] Stop: 11/16/17 20:59 Last Admin: 09/18/17 08:22 Dose: 5,000 units Hydralazine HCl (Apresoline 20 Mg/Ml) 10 mg IV Q6HR PRN PRN Reason: htn sbp >165 Stop: 11/16/17 07:18 Last Admin: 09/18/17 08:18 Dose: 10 mg Metronidazole (Flagyl) 500 mg in 100 mls @ 100 mls/hr IV Q8H [facility] Stop: 11/16/17 08:59 Last Infusion: 09/18/17 10:03 Dose: Infused Levofloxacin (Levaquin Pb) 250 mg in 50 mls @ 50 mls/hr IV Q24H [facility] Stop: 11/17/17 08:59 Last Infusion: 09/18/17 09:25 Dose: Infused Dextrose/Sodium Chloride (D5-0.45ns) 1,000 mls @ 125 mls/hr IV .Q8H [facility] Stop: 11/16/17 14:44 Last Admin: 09/18/17 06:48 Dose: 125 mls/hr Potassium Chloride (Potassium Chloride) 40 meq in 200 mls @ 50 mls/hr IV 0730 [facility] Stop: 09/19/17 11:29 Last Admin: 09/18/17 08:52 Dose: 50 mls/hr Insulin Aspart (Novolog Insulin Sliding Scale) 0 units SUBQ ACHS [facility]; Protocol Stop: 11/16/17 07:29 Last Admin: 09/18/17 12:45 Dose: Not Given Insulin Detemir (Levemir Insulin) 6 units SUBQ HS [facility]; Protocol Stop: 11/16/17 20:59 Last Admin: 09/17/17 20:35 Dose: 6 units Isosorbide Mononitrate (Imdur) 60 mg PO BID [facility] Stop: 11/16/17 08:59 Last Admin: 09/18/17 08:21 Dose: 60 mg Lorazepam (Ativan) 0.5 mg IVP Q4HR PRN; Protocol PRN Reason: Agitation Stop: 11/16/17 09:19 Last Admin: 09/18/17 08:59 Dose: 0.5 mg Magnesium Hydroxide (Milk Of Magnesia) 30 ml PO HS PRN PRN Reason: Constipation Stop: 11/16/17 07:14 Megestrol Acetate (Megace) 400 mg PO BID [facility] Stop: 11/16/17 08:59 Last Admin: 09/18/17 08:21 Dose: 400 mg Metoprolol Tartrate (Lopressor) 25 mg PO BID [facility] Stop: 11/16/17 08:59 Last Admin: 09/18/17 08:22 Dose: 25 mg Miscellaneous (Clinical Monitoring) 1 ea MC DAILY PRN PRN Reason: RENAL DOSING Stop: 11/16/17 08:05 Miscellaneous (Vte Chemical Prophylaxis Screen/ Admission) 1 ea MC PRN PRN PRN Reason: PROTOCOL Stop: 11/16/17 14:17 Miscellaneous (Misc Injection) 1 vial IVP Q3HR PRN PRN Reason: HEART RATE > 110 BPM Stop: 11/17/17 12:53 Pantoprazole Sodium (Protonix) 40 mg IVP DAILY [facility] Stop: 11/16/17 11:29 Last Admin: 09/18/17 08:21 Dose: 40 mg Polyethylene Glycol (Miralax) 17 gm PO DAILY [facility] Stop: 11/16/17 08:59 Last Admin: 09/18/17 09:51 Dose: Not Given Rivastigmine (Exelon 9.5 Mg/24 Hr Tdm) 1 patch TD DAILY [facility] Stop: 11/16/17 08:59 Last Admin: 09/18/17 10:00 Dose: 1 pat Lab - Result Diagrams 09/23/17 06:35 09/23/17 06:00 kidney fnc improved w/ BUN/CR of 79/2.1 now nonoliguric replace K, MG start Cardizem for A. fib Echo LVH, EJF 55% continue hydration elevated Troponin on ASA, metoprolol Nutritional Asmnt/Malnutr-PDOC - Dietary Evaluation Malnutrition Findings (Please click <Entered> for more info): Nutritional Asmnt/Malnutrition Start: 09/17/17 14: 32 Text: Status: Complete Freq: Protocol: Document 09/17/17 14:35 LCHENG (Rec: 09/17/17 15:03 LCHENG [email or web address]) Nutritional Asmnt/Malnutrition Patient General Information Nutritional Screening High Risk Consult Diagnosis hyperkalemia, renal failure, dehydration Pertinent Medical Hx/Surgical Hx HTN, DM, UTI, major depression , anemia, hypercholesterolemia , vit D deficiency, CHF, dyslipidemia, arthritis, dementia, CHF, depression, dementia Subjective Information Consult received for Negrito 12 . Pt seen lying in bed at time of visit. Pt has NGT noted. Current Diet Order/ Nutrition Support NPO Pertinent Medications D5-0.45ns, colace, novolog, levemir, levaquin, megace, protonix, miralax Pertinent Labs 09/17 K 5.9, cl 110, BUN 210, Cr 4.6, glucose 197, POC 146-225 , Ca 11.1, K 6.7 09/16 K 6.4, Cl 108, BUN 223, Cr 4.8, glucose 116, Ca 11.5 Nutritional Hx/Data Height 1.7 m Height (Calculated Centimeters) 170.2 Current Weight (lbs) 53.07 kg Weight (Calculated Kilograms) 53.1 Weight (Calculated Grams) 71507.3 [place] Body Weight 135 % [place] Body Weight 86 Body Mass Index (BMI) 18.3 Weight Status Underweight GI Symptoms GI Symptoms None Last BM 6 x 4 Difficult in: None Usual diet at home soft NCS MOON at care facility per chart Skin Integrity/Comment: pressure area reddended to right/left foot Estimated Nutritional Goals BEE in Kcals: Using Current wt Calories/Kcals/Kg 27-32 Kcals Calculated 4902-0090 Protein: Using Current wt Protein g/kg: per MD Protein Calculated per MD Fluid: ml Per MD Nutritional Problem 1. Problem Problem altered nutrition related labs Etiology electrolytes/fluid imbalance, renal failure, hx of DM Signs/Symptoms: K 5.9, cl 110, BUN 210, Cr 4.6 , glucose 197, POC 146-225, Ca 11.1, K 6.7 Malnutrition Alert Is there a minimum of two criteria No selected? Query Text:Check all the applicable criteria. A minimum of two criteria are recommended for diagnosis of either severe or non-severe malnutrition. Malnutrition Related to Morbid Obesity Malnutrition related to morbid obesity No Intervention/Recommendation Comments 1. Monitor NPO status. 2. Monitor wt, labs and skin integrity 3. F/U as high risk in 2-3 days, /3-6/ Expected Outcomes/Goals Expected Outcomes/Goals 1. PO intake to meet at least 75% of nutritional needs. 2. Wt stability, skin to remain intact, labs to approach WNL.
--- NOTE | 2017-09-23 22:47 | Progress Notes ---
DATE: 09/22/2017 SUBJECTIVE: The patient is lethargic, remains on NG tube feeding. OBJECTIVE: VITAL SIGNS: Basically stable. HEENT: Normocephalic, atraumatic. Pupils equal, round, react to light and accommodation. CHEST: Symmetrical. LUNGS: Few wheezing appreciated. HEART: Normal sinus rhythm. S1, S2. ABDOMEN: Benign, soft, nontender. EXTREMITIES: No clubbing, cyanosis or edema . NEUROLOGIC: Unremarkable. LABORATORY DATA: Reviewed. BUN 93, creatinine 2.1. ASSESSMENT: 1. Coronary artery disease, status post myocardial infarction: Continue medications. We will observe closely. 2. Acute kidney injury: Improving. We will try to avoid nephrotoxic medication if possible. 3. Anemia, status post blood transfusion with stabilization. 4. Proteus mirabilis urinary tract infection: Continue IVPB antibiotics. 5. Altered level of consciousness due metabolic encephalopathy and dementia. 6. , improving. 7. Atrial fibrillation, rate controlled. 8. DVT prophylaxis. JOB# [id number]
--- NOTE | 2017-09-29 06:27 | Discharge Summary ---
DATE OF DISCHARGE: 09/24/2017 FINAL DIAGNOSES: 1. Acute renal failure, improved. 2. Acute non-ST elevation myocardial infarction, improving. 3. Atrial fibrillation with rate controlled. 4. Anemia, received blood transfusion with stabilization. 5. Proteus mirabilis urinary tract infection, receiving IVPB antibiotics. 6. Altered level of consciousness, improving. HOSPITAL COURSE: The patient is an 82-year-old -[place] female admitted from the Emergency Room to the Intensive Care Unit of [facility] due to acute renal failure with severe dehydration, altered level of consciousness and mildly elevated troponin in the beginning. The patient also has hyperkalemia and Kayexalate was given in the Emergency Room. The patient also had urinary tract infection and antibiotics were started and adjusted accordingly. While in the intensive care unit, the patient had atrial fibrillation and subsequently markedly elevated troponin. Cardiology consultation requested and appreciated. The patient's condition stabilized. She was accepted to [facility] in [place]. DISCHARGE CONDITION: Stable. DISPOSITION: [facility] DISCHARGE MEDICATIONS: Continue medications from here. DIET: Continue NG tube feeding. ACTIVITY: Bed rest with physical therapy. FOLLOWUP: Same day in [place]. JOB# [id number]
== END 2017-09-24 00:15 | DRG 871 ==
LOC: ER 21:14 → ICU 09-17 00:10 → TELE 09-21 17:50
PROVIDERS: ADMIT Internal Medicine; ATTEND Internal Medicine
PROC: 30233N1 Transfusion of Nonautologous Red Blood Cells into Peripheral Vein, Percutaneous Approach (ICD-10-PCS; principal; 2017-09-21)
DX: A41.9 Sepsis, unspecified organism (principal); I21.4 Non-ST elevation (NSTEMI) myocardial infarction; G93.41 Metabolic encephalopathy; N39.0 Urinary tract infection, site not specified; N17.9 Acute kidney failure, unspecified; N18.4 Chronic kidney disease, stage 4 (severe); I13.0 Hypertensive heart and chronic kidney disease with heart failure and stage 1 through stage 4 chronic kidney disease, or unspecified chronic kidney disease; I50.30 Unspecified diastolic (congestive) heart failure; D72.829 Elevated white blood cell count, unspecified; E87.5 Hyperkalemia; E86.0 Dehydration; E11.22 Type 2 diabetes mellitus with diabetic chronic kidney disease; F32.9 Major depressive disorder, single episode, unspecified; F03.90 Unspecified dementia, unspecified severity, without behavioral disturbance, psychotic disturbance, mood disturbance, and anxiety; E55.9 Vitamin D deficiency, unspecified; E78.5 Hyperlipidemia, unspecified; M19.90 Unspecified osteoarthritis, unspecified site; D63.8 Anemia in other chronic diseases classified elsewhere; R62.7 Adult failure to thrive; K56.41 Fecal impaction; I48.2 Chronic atrial fibrillation; I25.10 Atherosclerotic heart disease of native coronary artery without angina pectoris; Z87.440 Personal history of urinary (tract) infections; Z88.0 Allergy status to penicillin
CPT/HCPCS: 36415-UA; 36600-90; 71045-TC; 74000-TC; 76770-TC; 80048-TC; 80053-TC; 80061-TC; 81001-TC; 81015-TC; 82570-TC; 82803-TC; 82948-90; 83036-90; 83051-90; 83605; 83735-TC; 83880-TC; 83935-90; 84100-TC; 84156-TC; 84300-TC; 84443-TC; 84484-TC; 84550-TC; 85007-TC; 85014-TC; 85018-TC; 85025-TC; 85027-TC; 86850-TC; 86900-TC; 86901-TC; 86922-TC; 87086-90; 90779; 90799; 93005; C9113; J0360; J0696; J1644; J1815; J1956; J2001; J2060; J3475; J3480; P9016; X3401; Z7610